=== PATIENT | male | born 1970 | race Caucasian/White ===

== ENCOUNTER 2020-02-28 20:46 | Observation (INO) | payer MEDICAID, OTHER ==
[2020-02-28] MEDS ORDERED: Sodium Chloride 0.9% 1000 ML 1,000 ML ONE ×2 (21:06→23:51)
--- NOTE | 2020-02-28 21:06 | ERPHSYRPT ---
- History of Present Illness Time Seen by Provider: 02/28/20 20:50 Source: patient Exam Limitations: no limitations Physician History: Patient is a 49-year-old male presents to our ED with complaints of myalgias. Symptoms started approximately 7 days ago. Patient states he has been working for 2 weeks straight. Patient feels his body is just sore from working. María ent states that he has a history of diabetes. However he has not treated. He does not see a family physician. He has been experiencing polyuria and polydipsia. Symptoms are progressive. Symptoms are moderate in intensity. No specific worsening or improving factors. Patient also points out that his right index finger is swollen red and tender. Patient believes that he may had a finger infection. No trauma. No associated fevers. No headache. No photophobia. No nuchal rigidity. Patient voices no other complaints concerns at this time. Timing/Duration: week(s) (Week) Severity: moderate Modifying Factors: Improves With: nothing Associated Symptoms: other (Generalized myalgias), No nausea, No vomiting, No abdominal pain, No heartburn, No diaphoresis, No cough, No chills, No chest p ain, No fever, No headaches, No loss of appetite, No malaise, No syncope Allergies/Adverse Reactions: No Known Drug Allergies Allergy (Unverified 02/28/20 20:55) Home Medications: No Reportable Medications [No Reported Medications] 02/28/20 [History] - Review of Systems Constitutional: No Symptoms, No Fever, No Chills Eyes: No Symptoms Ears, Nose, & Throat: No Symptoms Respiratory: No Symptoms, No Cough, No Dyspnea Cardiac: No Symptoms, No Chest Pain, No Edema, No Syncope Abdominal/Gastrointestinal: No Symptoms, No Abdominal Pain, No Nausea, No Vomiting, No Diarrhea Genitourinary Symptoms: No Symptoms, No Dysuria Musculoskeletal: No Symptoms, No Back Pain, No Neck Pain Skin: No Symptoms, No Rash Neurological: No Symptoms, No Dizziness, No Focal Weakness, No Sensory Changes Psychological: No Symptoms Endocrine: No Symptoms Hematologic/Lymphatic: No Symptoms Immunological/Allergic: No Symptoms All Other Systems: Reviewed and Negative - Nursing Vital Signs Nursing Vital Signs: Initial Vital Signs Temperature 98.1 F 02/28/20 20:46 Pulse Rate 109 H 02/28/20 20:46 Respiratory Rate 20 02/28/20 20:46 Blood Pressure 126/95 02/28/20 20:46 O2 Sat by Pulse Oximetry 95 02/28/20 20:46 Pain Scale Pain Intensity [] 8 Pain Intensity 6 - Physical Exam General Appearance: no apparent distress, alert Eye Exam: PERRL/EOMI, eyes nml inspection Ears, Nose, Throat Exam: normal ENT inspection, TMs normal, pharynx normal, moist mucous membranes Neck Exam: normal inspection, non-tender, supple, full range of motion Respiratory Exam: normal breath sounds, lungs clear, No respiratory distress Cardiovascular Exam: regular rate/rhythm, normal heart sounds, normal peripheral pulses Gastrointestinal/Abdomen Exam: soft, normal bowel sounds, No tenderness, No mass Back Exam: normal inspection, normal range of motion, No CVA tenderness, No vertebral tenderness Extremity Exam: normal inspection, normal range of motion, pelvis stable, other (Right index finger is warm tender and swollen. Patient believes he has a splinter underneath his fingernail.) Neurologic Exam: alert, oriented x 3, cooperative, normal mood/affect, nml cerebellar function, nml station & gait, sensation nml, No motor deficits Skin Exam: normal color, warm, dry, No rash Lymphatic Exam: No adenopathy SpO2 Interpretation: normal SpO2: 97 O2 Delivery: Room Air - Course Nursing assessment & vital signs reviewed: Yes EKG Interpreted by Me: RATE (105), Sinus Tach, NORMAL AXIS, NORMAL INTERVALS - Radiology Exams Chest X-ray Interpretation: Interpreted by me (Normal chest x-ray. No pneumothorax. No infiltrate. No consolidation. Normal bony thorax. Normal cardiac silhouette. Normal chest x-ray.) Hand X-ray Interpretation: Interpreted by me (No fracture or dislocation. No foreign body no evidence of osteomyelitis) Ordered Tests: Active Orders 24 hr Category Date Time Status Biomaterials Engineer STAT Care 02/28/20 21:00 Active EKG-ER Only STAT Care 02/28/20 20:59 Active IV Insertion STAT Care 02/28/20 20:59 Active IV Insertion-2nd Peripheral STAT Care 02/28/20 21:23 Active Pulse Oximetry (ED) STAT Care 02/28/20 20:59 Active CHEST 1 VIEW (PORTABLE) Stat Exams 02/28/20 20:59 Taken HAND (MINIMUM 3 VIEWS) Stat Exams 02/28/20 22:40 Ordered BLOOD CULTURE Stat Lab 02/28/20 21:20 Received CBC W DIFF Stat Lab 02/28/20 21:00 Completed CMP Stat Lab 02/28/20 21:00 Completed CULTURE,URINE Stat Lab 02/28/20 21:00 Received Lactic Acid Stat Lab 02/28/20 23:48 Ordered MAGNESIUM Stat Lab 02/28/20 21:00 Completed Manual Differential NC Stat Lab 02/28/20 21:00 Completed POCT GLUCOSE Stat Lab 02/28/20 21:05 Received TROPONIN Q3H Lab 02/28/20 21:00 Completed TROPONIN Q3H Lab 02/29/20 00:00 Ordered TROPONIN Q3H Lab 02/29/20 03:00 Ordered TROPONIN Q3H Lab 02/29/20 06:00 Ordered TROPONIN Q3H Lab 02/29/20 09:00 Ordered TSH [TSH, 3RD Generation] Stat Lab 02/28/20 21:00 Completed UA W/RFX UR CULTURE Stat Lab 02/28/20 21:00 Completed VENOUS BLOOD GAS Urgent Lab 02/28/20 21:56 Completed Transfer Order Routine Transfer 02/28/20 Ordered Medication Summary Generic Name Dose Route Start Last Admin Trade Name Freq PRN Reason Stop Dose Admin Sodium Chloride 1,000 mls @ 100 mls/hr 02/28/20 21:15 02/28/20 22:09 Sodium Chloride 0.9% 1000 Ml IV 03/29/20 21:14 Infused .Q10H NAN Infusion Insulin Human Regular 100 unit 100 mls @ 8.382 mls/hr 02/28/20 22:28 02/28/20 22:39 / Sodium Chloride IV 03/29/20 22:27 0.1 unit/kg/hr .[id number] PRN 8.382 mls/hr DKA/HYPERGLYCEMIA Administration Protocol 0.1 UNIT/KG/HR Vancomycin HCl 1 gm in 200 mls @ 125 mls/hr 02/28/20 22:41 02/28/20 23:22 Vancomycin 1 Gram/200 Ml Bag IV 02/29/20 00:16 125 mls/hr STAT ONE 125 mls/hr Administration Discontinued Medications Generic Name Dose Route Start Last Admin Trade Name Freq PRN Reason Stop Dose Admin Fluconazole 150 mg 02/28/20 23:19 Diflucan PO 02/28/20 23:20 ONCE STA Sodium Chloride Confirm 02/28/20 22:34 Sodium Chloride 0.9% 100 Ml Ivpb Administered 02/28/20 22:35 Dose 100 mls @ ud IV .STK-MED ONE Piperacillin Sod/Tazobactam 100 mls @ 200 mls/hr 02/28/20 22:38 02/28/20 22:4 8 Sod 3.375 gm/ Sodium Chloride IV 02/28/20 23:07 200 mls/hr STAT ONE Administration Sodium Chloride Confirm 02/28/20 22:45 Sodium Chloride 100ml Mini-Bag Plus Administered 02/28/20 22:46 Dose 100 mls @ ud IV .STK-MED ONE Vancomycin HCl Confirm 02/28/20 23:21 Vancomycin 1 Gram/200 Ml Bag Administered 02/28/20 23:22 Dose 1 gm in 200 mls @ ud IV .STK-MED ONE Insulin Human Regular Confirm 02/28/20 22:34 Humulin R Administered 02/28/20 22:35 Dose 100 unit .ROUTE .STK-MED ONE Morphine Sulfate 2 mg 02/28/20 22:30 02/28/20 22:39 Morphine Sulfate 2 Mg Inj IV 02/28/20 22:31 2 mg STAT ONE Administration Morphine Sulfate Confirm 02/28/20 22:34 Morphine Sulfate 2 Mg Inj Administered 02/28/20 22:35 Dose 2 mg .ROUTE .STK-MED ONE Piperacillin Sod/Tazobactam Sod Confirm 02/28/20 22:44 Zosyn 3.375 Gm Vial Administered 02/28/20 22:45 Dose 3.375 gm IV .STK-MED ONE Lab/Rad Data: Laboratory Result Diagrams 02/28/20 21:00 02/28/20 21:00 Laboratory Results 02/28/20 02/28/20 02/28/20 Range/Units 21:56 21:30 21:00 WBC (4.0-10.5) K/mm3 RBC (4.1-5.6) M/mm3 Hgb (12.5-18.0) gm/dl Hct (42-50) % MCV (78-100) fl MCH (26-32) pg MCHC (32-36) g/dl RDW (11.5-14.0) % Plt Count (150-450) K/mm3 MPV (7.5-11.0) fl Segmented Neutrophils (36.-66.) % Lymphocytes (Manual) (24-44) % Monocytes (Manual) (0.0-12.0) % Platelet Estimate (NORMAL) RBC Morphology pO2/FiO2 Ratio 21.0 % VBG pH 7.53 H (7.32-7.42) VBG pCO2 at Pat Temp 34 L (42-55) mm/Hg VBG pO2 at Pat Temp 66 H (25-40) mm/Hg VBG HCO3 28.4 H (22-28) meq/L VBG O2 Sat (Anamaria) 95.5 (95-100) VBG Base Excess 5.8 H (-2.0-2.0) VBG Hemoglobin 13.0 VBG Carboxyhemoglobin 3.1 (0.0-6.9) % T HGB POC Potassium 5.1 (3.5-5.1) Sodium (137-145) mmol/L Potassium (3.5-5.1) mmol/L Chloride (98-107) mmol/L Carbon Dioxide (22-30) mmol/L Anion Gap (5-15) MEQ/L BUN (9-20) mg/dL Creatinine (0.66-1.25) mg/dL Estimated GFR ML/MIN Glucose (74-106) mg/dL Calcium (8.4-10.2) mg/dL Magnesium (1.6-2.3) mg/dL Total Bilirubin (0.2-1.3) mg/dL AST (17-59) U/L ALT (0-50) U/L Alkaline Phosphatase (38-126) U/L Troponin I (0.000-0.034) ng/mL Serum Total Protein (6.3-8.2) g/dL Albumin (3.5-5.0) g/dL TSH 3rd Generation (0.47-4.68) mIU/L Urine Color YELLOW (YELLOW) Urine Appearance CLOUDY (CLEAR) Urine pH 6.0 (5-6) Ur Specific [place] 1.014 (1.005-1.025) Urine Protein NEGATIVE (Negative) Urine Ketones NEGATIVE (NEGATIVE) Urine Blood MODERATE (0-5) Stefan/ul Urine Nitrite NEGATIVE (NEGATIVE) Urine Bilirubin NEGATIVE (NEGATIVE) Urine Urobilinogen NEGATIVE (0-1) mg/dL Ur Leukocyte Esterase LARGE (NEGATIVE) Urine WBC (Auto) >100 (0-5) /HPF Urine RBC (Auto) 6-10 (0-2) /HPF U Epithel Cells (Auto) NONE (FEW) /HPF Urine Bacteria (Auto) RARE (NEGATIVE) /HPF Unidentified Crystals 2-5 (NEGATIVE) /HPF Urine Yeast (Budding) Rare (NEGATIVE) /HPF Urine Culture Reflexed YES (NO) Urine Glucose >=500 (NEGATIVE) mg/dL Influenza Type A Ag NEGATIVE (NEGATIVE) Influenza Type B Ag NEGATIVE (NEGATIVE) RSV (PCR) NEGATIVE (Negative) 02/28/20 02/28/20 02/28/20 Range/Units 21:00 21:00 21:00 WBC (4.0-10.5) K/mm3 RBC (4.1-5.6) M/mm3 Hgb (12.5-18.0) gm/dl Hct (42-50) % MCV (78-100) fl MCH (26-32) pg MCHC (32-36) g/dl RDW (11.5-14.0) % Plt Count (150-450) K/mm3 MPV (7.5-11.0) fl Segmented Neutrophils (36.-66.) % Lymphocytes (Manual) (24-44) % Monocytes (Manual) (0.0-12.0) % Platelet Estimate (NORMAL) RBC Morphology pO2/FiO2 Ratio % VBG pH (7.32-7.42) VBG pCO2 at Pat Temp (42-55) mm/Hg VBG pO2 at Pat Temp (25-40) mm/Hg VBG HCO3 (22-28) meq/L VBG O2 Sat (Anamaria) (95-100) VBG Base Excess (-2.0-2.0) VBG Hemoglobin VBG Carboxyhemoglobin (0.0-6.9) % T HGB POC Potassium (3.5-5.1) Sodium 124 L (137-145) mmol/L Potassium 5.1 (3.5-5.1) mmol/L Chloride 86 L (98-107) mmol/L Carbon Dioxide 27 (22-30) mmol/L Anion Gap 15.6 H (5-15) MEQ/L BUN 35 H (9-20) mg/dL Creatinine 1.71 H (0.66-1.25) mg/dL Estimated GFR 45.6 ML/MIN Glucose 800 H* (74-106) mg/dL Calcium 9.0 (8.4-10.2) mg/dL Magnesium 2.3 (1.6-2.3) mg/dL Total Bilirubin 0.70 (0.2-1.3) mg/dL AST 16 L (17-59) U/L ALT 13 (0-50) U/L Alkaline Phosphatase 196 H (38-126) U/L Troponin I < 0.012 (0.000-0.034) ng/mL Serum Total Protein 7.9 (6.3-8.2) g/dL Albumin 3.8 (3.5-5.0) g/dL TSH 3rd Generation 1.300 (0.47-4.68) mIU/L Urine Color (YELLOW) Urine Appearance (CLEAR) Urine pH (5-6) Ur Specific [place] (1.005-1.025) Urine Protein (Negative) Urine Ketones (NEGATIVE) Urine Blood (0-5) Stefan/ul Urine Nitrite (NEGATIVE) Urine Bilirubin (NEGATIVE) Urine Urobilinogen (0-1) mg/dL Ur Leukocyte Esterase (NEGATIVE) Urine WBC (Auto) (0-5) /HPF Urine RBC (Auto) (0-2) /HPF U Epithel Cells (Auto) (FEW) /HPF Urine Bacteria (Auto) (NEGATIVE) /HPF Unidentified Crystals (NEGATIVE) /HPF Urine Yeast (Budding) (NEGATIVE) /HPF Urine Culture Reflexed (NO) Urine Glucose (NEGATIVE) mg/dL Influenza Type A Ag (NEGATIVE) Influenza Type B Ag (NEGATIVE) RSV (PCR) (Negative) 02/28/20 Range/Units 21:00 WBC 21.7 H (4.0-10.5) K/mm3 RBC 4.39 (4.1-5.6) M/mm3 Hgb 12.6 (12.5-18.0) gm/dl Hct 36.2 L (42-50) % MCV 82.5 (78-100) fl MCH 28.7 (26-32) pg MCHC 34.8 (32-36) g/dl RDW 11.6 (11.5-14.0) % Plt Count 408 (150-450) K/mm3 MPV 9.1 (7.5-11.0) fl Segmented Neutrophils 94 H (36.-66.) % Lymphocytes (Manual) 4 L (24-44) % Monocytes (Manual) 2 (0.0-12.0) % Platelet Estimate NORMAL (NORMAL) RBC Morphology NORMAL pO2/FiO2 Ratio % VBG pH (7.32-7.42) VBG pCO2 at Pat Temp (42-55) mm/Hg VBG pO2 at Pat Temp (25-40) mm/Hg VBG HCO3 (22-28) meq/L VBG O2 Sat (Anamaria) (95-100) VBG Base Excess (-2.0-2.0) VBG Hemoglobin VBG Carboxyhemoglobin (0.0-6.9) % T HGB POC Potassium (3.5-5.1) Sodium (137-145) mmol/L Potassium (3.5-5.1) mmol/L Chloride (98-107) mmol/L Carbon Dioxide (22-30) mmol/L Anion Gap (5-15) MEQ/L BUN (9-20) mg/dL Creatinine (0.66-1.25) mg/dL Estimated GFR ML/MIN Glucose (74-106) mg/dL Calcium (8.4-10.2) mg/dL Magnesium (1.6-2.3) mg/dL Total Bilirubin (0.2-1.3) mg/dL AST (17-59) U/L ALT (0-50) U/L Alkaline Phosphatase (38-126) U/L Troponin I (0.000-0.034) ng/mL Serum Total Protein (6.3-8.2) g/dL Albumin (3.5-5.0) g/dL TSH 3rd Generation (0.47-4.68) mIU/L Urine Color (YELLOW) Urine Appearance (CLEAR) Urine pH (5-6) Ur Specific [place] (1.005-1.025) Urine Protein (Negative) Urine Ketones (NEGATIVE) Urine Blood (0-5) Stefan/ul Urine Nitrite (NEGATIVE) Urine Bilirubin (NEGATIVE) Urine Urobilinogen (0-1) mg/dL Ur Leukocyte Esterase (NEGATIVE) Urine WBC (Auto) (0-5) /HPF Urine RBC (Auto) (0-2) /HPF U Epithel Cells (Auto) (FEW) /HPF Urine Bacteria (Auto) (NEGATIVE) /HPF Unidentified Crystals (NEGATIVE) /HPF Urine Yeast (Budding) (NEGATIVE) /HPF Urine Culture Reflexed (NO) Urine Glucose (NEGATIVE) mg/dL Influenza Type A Ag (NEGATIVE) Influenza Type B Ag (NEGATIVE) RSV (PCR) (Negative) - Progress Progress: improved Progress Note: 02/29/20 00:01 Patient reassessed. He feels better. Work-up suggestive of HHS, hyperosmotic hyperglycemic state. Corrected sodium is 140 using 2.4 to correct sodium. X- ray hand does not show osteomyelitis. No foreign bodies. Patient does have a urinary tract infection. This may be contributing to the HHS state. Acute renal injury likely from profound dehydration. IV fluids initiated. Blood cultures obtained. Broad-spectrum antibiotics administered. Insulin drip a dministered at 0.1 units/kg/h. case discussed with Dr. Pryor who accepts admission to observation. Plan of care discussed with patient. He agrees to admission to [facility] for further evaluation and treatment. Will see patient in: hospital (observation) Counseled pt/family regarding: lab results, diagnosis, rad results - Departure Departure Disposition: Observation Clinical Impression: Hyperosmolar hyperglycemic state (HHS), Hematuria, UTI (urinary tract infection), Finger infection, Yeast detected, Myalgia, Acute renal injury Condition: Stable Critical Care Time: No Referrals: DOCTOR,NO FAMILY [Primary Care Provider] -
[2020-02-28] MEDS ORDERED: Sodium Chloride 0.9% 1000 ML 1,000 ML IV SCH (21:15)
[2020-02-28 21:33] LABS: Hematocrit 36.2 % (42-50); Hemoglobin 12.6 gm/dl (12.5-18.0); Mean Cell Volume 82.5 fl (78-100); Mean Corpuscular Hemoglobin 28.7 pg (26-32); Mean Corpuscular Hgb Concent. 34.8 g/dl (32-36); Mean Platelet Volume 9.1 fl (7.5-11.0); Platelet Count 408 K/mm3 (150-450); Red Blood Count 4.39 M/mm3 (4.1-5.6); Red Cell Distribution Width 11.6 % (11.5-14.0); White Blood Count 21.7 K/mm3 (4.0-10.5)
[2020-02-28 21:46] LABS: ALBUMIN 3.8 g/dL (3.5-5.0); ANION GAP 15.6 MEQ/L (5-15); BILIRUBIN,TOTAL 0.7 mg/dL (0.2-1.3); Creatinine 1 1.71 mg/dL (0.66-1.25); EST GLOMERULAR FILTRATION RATE 45.6 ML/MIN; MAGNESIUM 2.3 mg/dL (1.6-2.3); Potassium 5.1 mmol/L (3.5-5.1); Total Protein 7.9 g/dL (6.3-8.2)
[2020-02-28 21:54] LABS: Appearance CLOUDY (CLEAR); Bacteria RARE /HPF (NEGATIVE); Bilirubin NEGATIVE (NEGATIVE); Blood MODERATE Ery/ul (0-5); Glucose >=500 mg/dL (NEGATIVE); Ketones NEGATIVE (NEGATIVE); Leukocyte Esterase LARGE (NEGATIVE); Nitrite NEGATIVE (NEGATIVE); Protein,Urine Dip NEGATIVE (Negative); Specific Gravity 1.014 (1.005-1.025); Urobilinogen NEGATIVE mg/dL (0-1); WBC >100 /HPF (0-5)
[2020-02-28 22:00] LABS: Budding Yeast Rare /HPF (NEGATIVE)
[2020-02-28 22:04] LABS: VBG BASE EXCESS 5.8 (-2.0-2.0); VBG CARBOXYHEMOGLOBIN 3.1 % T HGB (0.0-6.9); VBG HCO3- 28.4 meq/L (22-28); VBG O2 SATURATION 95.5 (95-100); VBG POTASSIUM 5.1 (3.5-5.1); VBG pH 7.53 (7.32-7.42)
[2020-02-28 22:17] LABS: INFLUENZA A NEGATIVE (NEGATIVE); INFLUENZA B NEGATIVE (NEGATIVE); RESPIRATORY SYNCTIAL VIRUS NEGATIVE (Negative)
[2020-02-28] MEDS ORDERED: HUMULIN R 100 UNIT in Sodium Chloride 0.9% 100 ML IVPB 100 ML IV PRN (22:28)
[2020-02-28] MEDS ORDERED: MORPHINE SULFATE 2 MG INJ IV ONE (22:30)
[2020-02-28] MEDS ORDERED: Sodium Chloride 0.9% 100 ML IVPB 100 ML IV ONE (22:34)
[2020-02-28] MEDS ORDERED: HUMULIN R ONE (22:34)
[2020-02-28] MEDS ORDERED: MORPHINE SULFATE 2 MG INJ ONE (22:34)
[2020-02-28] MEDS ORDERED: Zosyn 3.375 GM Vial 3.375 GM in Sodium Chloride 100ML MINI-BAG PLUS 100 ML IV ONE (22:38)
[2020-02-28] MEDS ORDERED: VANCOMYCIN 1 GRAM/200 ML BAG 1 GM/200 ML PIGGYBACK IV ONE ×2 (22:41→23:21)
[2020-02-28] MEDS ORDERED: Zosyn 3.375 GM Vial IV ONE (22:44)
[2020-02-28] MEDS ORDERED: Sodium Chloride 100ML MINI-BAG PLUS 100 ML IV ONE (22:45)
[2020-02-28 23:17] LABS: Lymphocytes 4 % (24-44); Monocyte 2 % (0.0-12.0); Neutrophils 94 % (36.-66.); Platelet Estimate NORMAL (NORMAL); Total Cells Counted 100
[2020-02-28] MEDS ORDERED: DIFLUCAN PO STA (23:19)
[2020-02-29] MEDS ORDERED: Diflucan 100 MG ONE (00:02)
[2020-02-29] MEDS ORDERED: Sodium Chloride 0.9% 1000 ML 1,000 ML IV STA (00:07)
[2020-02-29] MEDS ORDERED: Sodium Chloride 0.9% 1000 ML 1,000 ML IV SCH ×2 (01:05→09:00)
[2020-02-29] MEDS ORDERED: MORPHINE SULFATE 2 MG INJ IV PRN (01:05)
[2020-02-29 03:22] LABS: Hematocrit 32.8 % (42-50); Hemoglobin 11.4 gm/dl (12.5-18.0); Mean Cell Volume 82.8 fl (78-100); Mean Corpuscular Hemoglobin 28.8 pg (26-32); Mean Corpuscular Hgb Concent. 34.8 g/dl (32-36); Mean Platelet Volume 8.5 fl (7.5-11.0); Platelet Count 369 K/mm3 (150-450); Red Blood Count 3.96 M/mm3 (4.1-5.6); Red Cell Distribution Width 11.5 % (11.5-14.0); White Blood Count 20.5 K/mm3 (4.0-10.5)
[2020-02-29] MEDS ORDERED: Lantus Insulin ONE (03:30)
[2020-02-29] MEDS ORDERED: Dextrose 5% -0.45 NaCl 1000 ML 1,000 ML IV ONE (03:31)
[2020-02-29] MEDS ORDERED: Lantus Insulin SQ SCH (03:34)
[2020-02-29 03:40] LABS: Lactic Acid 1.2 (0.4-2.0); VBG BASE EXCESS 6.2 (-2.0-2.0); VBG CARBOXYHEMOGLOBIN 2.2 % T HGB (0.0-6.9); VBG HCO3- 29.5 meq/L (22-28); VBG HEMOGLOBIN 11.7; VBG O2 SATURATION 94.6 (95-100); VBG pH 7.51 (7.32-7.42)
[2020-02-29] MEDS: Dextrose 5% -0.45 NaCl 1000 ML 1,000 ML IV SCH ×2 (03:46→07:34)
[2020-02-29 03:58] LABS: ALBUMIN 3.6 g/dL (3.5-5.0); ALKALINE PHOSPHATASE 155 U/L (38-126); ANION GAP 10.3 MEQ/L (5-15); BLOOD UREA NITROGEN 32 mg/dL (9-20); CHLORIDE 99 mmol/L (98-107); Carbon Dioxide 28 mmol/L (22-30); Creatinine 1 1.61 mg/dL (0.66-1.25); EST GLOMERULAR FILTRATION RATE 48.9 ML/MIN; Glucose 183 mg/dL (74-106); SGOT/AST 13 U/L (17-59); SGPT/ALT 10 U/L (0-50); SODIUM 134 mmol/L (137-145); Total Protein 7.6 g/dL (6.3-8.2)
[2020-02-29 04:01] LABS: TROPONIN < 0.012 ng/mL (0.000-0.034)
[2020-02-29 04:13] LABS: Lymphocytes 5 % (24-44); Monocyte 13 % (0.0-12.0); Neutrophils 82 % (36.-66.); Platelet Estimate NORMAL (NORMAL); Total Cells Counted 100
[2020-02-29 04:14] LABS: Toxic Granulation 1+
[2020-02-29 04:15] VITALS: BP 149/81
[2020-02-29] MEDS ORDERED: PHARMACY DOSING REQUIRED: VANCOMYCIN IV STA (07:15)
[2020-02-29] MEDS ORDERED: TROUGH DRUG LEVELS IJ ONE (07:45)
[2020-02-29] MEDS: Zosyn 3.375 GM Vial 3.375 GM in Sodium Chloride 100ML MINI-BAG PLUS 100 ML IV SCH ×3 (08:15→17:37)
[2020-02-29] MEDS ORDERED: MOTRIN 600 MG PO PRN (08:53)
[2020-02-29] MEDS: HUMALOG SQ PRN ×5 (09:04→17:38)
--- NOTE | 2020-02-29 09:05 | XRAY ---
Indication: Weakness. Pneumonia. Comparison: None Portable chest demonstrates normal heart, lungs, and bony thorax.
--- NOTE | 2020-02-29 09:06 | XRAY ---
Indication: Osteomyelitis index finger. Comparison: None 3 view right hand obtained. No bony, articular, or soft tissue abnormalities.
[2020-02-29] MEDS ORDERED: FLUZONE QUAD 2020-2021 SYRINGE IM ONE (10:00)
[2020-02-29] MEDS ORDERED: VANCOMYCIN 1.5 GRAM/300 ML BAG 1.5 GM/300 ML PIGGYBACK IV SCH (10:00)
[2020-02-29 12:30] VITALS: O2SAT 96
--- NOTE | 2020-02-29 13:16 | XRAY ---
Indication: Abdomen tenderness. Multiple contiguous axial images obtained through the abdomen and pelvis without contrast as ordered. Comparison: None Lung bases demonstrates bibasilar dependent atelectasis. No infiltrate or effusion. Heart is not enlarged. Noncontrasted stomach and bowel loops appear nonobstructed. Normal appendix. There is moderate/significant scattered colonic fecal debris throughout including rectum. No free fluid/air. Massive bilateral hydronephrosis with mild bilateral perinephric stranding. No distal ureteral calculus or perinephric fluid. Also massive bilateral hydroureter, left greater than right with left ureter are distended up to 3.5 cm. Urinary bladder is also significantly distended concerning for outlet obstruction versus neurogenic bladder. Urinary bladder also demonstrates circumferential wall thickening possibly cystitis. Liver is enlarged measuring 22 cm. Spleen is also enlarged measuring 14 cm. Remaining liver, gallbladder, pancreas, spleen, adrenal glands, and aorta are unremarkable for noncontrast exam. Osseous structures intact. No ventral or inguinal hernias. Impression: 1. Moderate/significant diffuse fecal stasis. 2. Massive bilateral hydronephrosis and massive hydroureter without calculus. Abnormally distended urinary bladder concerning for outlet obstruction versus neurogenic bladder and could reasonably explain hydronephrosis/hydroureter. Also circumferential urinary bladder wall thickening possibly superimposed cystitis. 3. Incidental hepatosplenomegaly.
[2020-02-29 17:01] VITALS: PULSE 95
--- NOTE | 2020-02-29 17:47 | PCM.SSS ---
History of Present Illness - Chief Complaint Chief Complaint: [facility] History of Present Illness: is a 49 year old male with diabetes who does not go to the doctor. 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 He presented to ER with myalgias worsening x 1 week. He has Hx renal stones and has had increased urinary frequency. ER work up showed glucose 800 , WBC=20,000, UA 100 WBCs, A1C =11.7%. Patient was admitted to [facility]BS ICU on insulin drip. Sugar has come down gradually ,now = 169. He is on sliding scale and recieved Lantus 43 units and insulin drip was discontinued early this morning. Urine and blood cultures pending, was started on Zosyn and Vancomycin. - Review of Systems Constitutional: Fatigue, Weakness Eyes: No Symptoms Ears, Nose, & Throat: Other (infected teeth,no sore throat ) Respiratory: No Symptoms Cardiac: No Symptoms Abdominal/Gastrointestinal: Abdominal Pain Genitourinary Symptoms: Frequency Musculoskeletal: Myalgias, Other (right forefinger sore and bled,NKI) Skin: No Symptoms Neurological: No Symptoms Psychological: No Symptoms Endocrine: Polyuria, Polydipsia Hematologic/Lymphatic: No Symptoms Immunological/Allergic: No Symptoms Medications & Allergies Home Medications: Home Medication List No Reportable Medications [No Reported Medications] 02/28/20 [History Confirmed 02/28/20] Allergies/Adverse Reactions: Allergies Allergy/AdvReac Type Severity Reaction Status Date / Time No Known Drug Allergies Allergy Unverified 02/28/20 20:55 - Past Medical History Past Medical History: Yes Neurological History: No Pertinent History ENT History: No Pertinent History Cardiac History: No Pertinent History Respiratory History: No Pertinent History Endocrine Medical History: Diabetes Type I Musculoskelatal History: No Pertinent History GI Medical History: No Pertinent History History: No Pertinent History, Other (Hx kidney stones) Pyscho-Social History: No Pertinent History Male Reproductive Disorders: No Pertinent History - Past Surgical History Past Surgical History: Yes Other Surgical History: Wart removal - Social History Smoking Status: Never smoker Exposure to second hand smoke: Yes Alcohol: None Drug Use: none - Physical Exam Vital Signs: Vital Signs - 24 hr Temp Pulse Resp BP Pulse Ox 02/29/20 16:00 98.2 F 95 H 16 149/81 96 02/29/20 12:00 98.6 F 103 H 18 149/81 96 02/29/20 08:00 99.1 F 102 H 14 149/81 93 L 02/29/20 06:49 95 02/29/20 04:00 98.8 F 114 H 16 149/81 97 02/29/20 01:42 98.1 F 124 H 16 167/99 94 L 02/29/20 01:05 97 02/29/20 00:31 124 H 21 146/94 94 L 02/29/20 00:04 97 02/29/20 00:04 110 H 146/94 96 02/28/20 23:04 116 H 17 137/88 93 L 02/28/20 22:00 112 H 16 132/96 93 L 02/28/20 21:51 110 H 132/79 94 L 02/28/20 21:05 97 02/28/20 20:46 98.1 F 109 H 20 126/95 95 General Appearance: no apparent distress Neurologic Exam: alert, oriented x 3, cooperative, normal mood/affect Eye Exam: eyes nml inspection Ears, Nose, Throat Exam: other (poor dentia) Neck Exam: normal inspection, non-tender, supple Respiratory Exam: normal breath sounds, lungs clear Cardiovascular Exam: regular rate/rhythm, other (no edema) Gastrointestinal/Abdomen Exam: soft, tenderness (left flank and CVA), distention Back Exam: CVA tenderness, muscle spasm Extremity Exam: normal inspection, other (right forefinger nail with dried heme) Skin Exam: normal color, warm, dry Results - Labs Lab/Micro Results: Lab Results-Last 24 Hours 02/28/20 02/28/20 02/28/20 Range/Units 21:00 21:00 21:00 WBC 21.7 H (4.0-10.5) K/mm3 RBC 4.39 (4.1-5.6) M/mm3 Hgb 12.6 (12.5-18.0) gm/dl Hct 36.2 L (42-50) % MCV 82.5 (78-100) fl MCH 28.7 (26-32) pg MCHC 34.8 (32-36) g/dl RDW 11.6 (11.5-14.0) % Plt Count 408 (150-450) K/mm3 MPV 9.1 (7.5-11.0) fl Segmented Neutrophils 94 H (36.-66.) % Lymphocytes (Manual) 4 L (24-44) % Monocytes (Manual) 2 (0.0-12.0) % Toxic Granulation Platelet Estimate NORMAL (NORMAL) RBC Morphology NORMAL pO2/FiO2 Ratio % VBG pH (7.32-7.42) VBG pCO2 at Pat Temp (42-55) mm/Hg VBG pO2 at Pat Temp (25-40) mm/Hg VBG HCO3 (22-28) meq/L VBG O2 Sat (Anamaria) (95-100) VBG Base Excess (-2.0-2.0) VBG Hemoglobin VBG Carboxyhemoglobin (0.0-6.9) % T HGB POC Potassium (3.5-5.1) Sodium 124 L (137-145) mmol/L Potassium 5.1 (3.5-5.1) mmol/L Chloride 86 L (98-107) mmol/L Carbon Dioxide 27 (22-30) mmol/L Anion Gap 15.6 H (5-15) MEQ/L BUN 35 H (9-20) mg/dL Creatinine 1.71 H (0.66-1.25) mg/dL Estimated GFR 45.6 ML/MIN Glucose 800 H* (74-106) mg/dL POC Glucometer (74 to 106) mg/dL Hemoglobin A1c (4.5-6.0) % Lactic Acid (0.4-2.0) Calcium 9.0 (8.4-10.2) mg/dL Magnesium 2.3 (1.6-2.3) mg/dL Total Bilirubin 0.70 (0.2-1.3) mg/dL AST 16 L (17-59) U/L ALT 13 (0-50) U/L Alkaline Phosphatase 196 H (38-126) U/L Troponin I < 0.012 (0.000-0.034) ng/mL Serum Total Protein 7.9 (6.3-8.2) g/dL Albumin 3.8 (3.5-5.0) g/dL TSH 3rd Generation (0.47-4.68) mIU/L Urine Color (YELLOW) Urine Appearance (CLEAR) Urine pH (5-6) Ur Specific [place] (1.005-1.025) Urine Protein (Negative) Urine Ketones (NEGATIVE) Urine Blood (0-5) Stefan/ul Urine Nitrite (NEGATIVE) Urine Bilirubin (NEGATIVE) Urine Urobilinogen (0-1) mg/dL Ur Leukocyte Esterase (NEGATIVE) Urine WBC (Auto) (0-5) /HPF Urine RBC (Auto) (0-2) /HPF U Epithel Cells (Auto) (FEW) /HPF Urine Bacteria (Auto) (NEGATIVE) /HPF Unidentified Crystals (NEGATIVE) /HPF Urine Yeast (Budding) (NEGATIVE) /HPF Urine Culture Reflexed (NO) Urine Glucose (NEGATIVE) mg/dL Influenza Type A Ag (NEGATIVE) Influenza Type B Ag (NEGATIVE) RSV (PCR) (Negative) 02/28/20 02/28/20 02/28/20 Range/Units 21:00 21:00 21:30 WBC (4.0-10.5) K/mm3 RBC (4.1-5.6) M/mm3 Hgb (12.5-18.0) gm/dl Hct (42-50) % MCV (78-100) fl MCH (26-32) pg MCHC (32-36) g/dl RDW (11.5-14.0) % Plt Count (150-450) K/mm3 MPV (7.5-11.0) fl Segmented Neutrophils (36.-66.) % Lymphocytes (Manual) (24-44) % Monocytes (Manual) (0.0-12.0) % Toxic Granulation Platelet Estimate (NORMAL) RBC Morphology pO2/FiO2 Ratio % VBG pH (7.32-7.42) VBG pCO2 at Pat Temp (42-55) mm/Hg VBG pO2 at Pat Temp (25-40) mm/Hg VBG HCO3 (22-28) meq/L VBG O2 Sat (Anamaria) (95-100) VBG Base Excess (-2.0-2.0) VBG Hemoglobin VBG Carboxyhemoglobin (0.0-6.9) % T HGB POC Potassium (3.5-5.1) Sodium (137-145) mmol/L Potassium (3.5-5.1) mmol/L Chloride (98-107) mmol/L Carbon Dioxide (22-30) mmol/L Anion Gap (5-15) MEQ/L BUN (9-20) mg/dL Creatinine (0.66-1.25) mg/dL Estimated GFR ML/MIN Glucose (74-106) mg/dL POC Glucometer (74 to 106) mg/dL Hemoglobin A1c (4.5-6.0) % Lactic Acid (0.4-2.0) Calcium (8.4-10.2) mg/dL Magnesium (1.6-2.3) mg/dL Total Bilirubin (0.2-1.3) mg/dL AST (17-59) U/L ALT (0-50) U/L Alkaline Phosphatase (38-126) U/L Troponin I (0.000-0.034) ng/mL Serum Total Protein (6.3-8.2) g/dL Albumin (3.5-5.0) g/dL TSH 3rd Generation 1.300 (0.47-4.68) mIU/L Urine Color YELLOW (YELLOW) Urine Appearance CLOUDY (CLEAR) Urine pH 6.0 (5-6) Ur Specific [place] 1.014 (1.005-1.025) Urine Protein NEGATIVE (Negative) Urine Ketones NEGATIVE (NEGATIVE) Urine Blood MODERATE (0-5) Stefan/ul Urine Nitrite NEGATIVE (NEGATIVE) Urine Bilirubin NEGATIVE (NEGATIVE) Urine Urobilinogen NEGATIVE (0-1) mg/dL Ur Leukocyte Esterase LARGE (NEGATIVE) Urine WBC (Auto) >100 (0-5) /HPF Urine RBC (Auto) 6-10 (0-2) /HPF U Epithel Cells (Auto) NONE (FEW) /HPF Urine Bacteria (Auto) RARE (NEGATIVE) /HPF Unidentified Crystals 2-5 (NEGATIVE) /HPF Urine Yeast (Budding) Rare (NEGATIVE) /HPF Urine Culture Reflexed YES (NO) Urine Glucose >=500 (NEGATIVE) mg/dL Influenza Type A Ag NEGATIVE (NEGATIVE) Influenza Type B Ag NEGATIVE (NEGATIVE) RSV (PCR) NEGATIVE (Negative) 02/28/20 02/28/20 02/29/20 Range/Units 21:56 23:48 00:00 WBC (4.0-10.5) K/mm3 RBC (4.1-5.6) M/mm3 Hgb (12.5-18.0) gm/dl Hct (42-50) % MCV (78-100) fl MCH (26-32) pg MCHC (32-36) g/dl RDW (11.5-14.0) % Plt Count (150-450) K/mm3 MPV (7.5-11.0) fl Segmented Neutrophils (36.-66.) % Lymphocytes (Manual) (24-44) % Monocytes (Manual) (0.0-12.0) % Toxic Granulation Platelet Estimate (NORMAL) RBC Morphology pO2/FiO2 Ratio 21.0 % VBG pH 7.53 H (7.32-7.42) VBG pCO2 at Pat Temp 34 L (42-55) mm/Hg VBG pO2 at Pat Temp 66 H (25-40) mm/Hg VBG HCO3 28.4 H (22-28) meq/L VBG O2 Sat (Anamaria) 95.5 (95-100) VBG Base Excess 5.8 H (-2.0-2.0) VBG Hemoglobin 13.0 VBG Carboxyhemoglobin 3.1 (0.0-6.9) % T HGB POC Potassium 5.1 (3.5-5.1) Sodium (137-145) mmol/L Potassium (3.5-5.1) mmol/L Chloride (98-107) mmol/L Carbon Dioxide (22-30) mmol/L Anion Gap (5-15) MEQ/L BUN (9-20) mg/dL Creatinine (0.66-1.25) mg/dL Estimated GFR ML/MIN Glucose (74-106) mg/dL POC Glucometer (74 to 106) mg/dL Hemoglobin A1c (4.5-6.0) % Lactic Acid 2.5 H (0.4-2.0) Calcium (8.4-10.2) mg/dL Magnesium (1.6-2.3) mg/dL Total Bilirubin (0.2-1.3) mg/dL AST (17-59) U/L ALT (0-50) U/L Alkaline Phosphatase (38-126) U/L Troponin I < 0.012 (0.000-0.034) ng/mL Serum Total Protein (6.3-8.2) g/dL Albumin (3.5-5.0) g/dL TSH 3rd Generation (0.47-4.68) mIU/L Urine Color (YELLOW) Urine Appearance (CLEAR) Urine pH (5-6) Ur Specific [place] (1.005-1.025) Urine Protein (Negative) Urine Ketones (NEGATIVE) Urine Blood (0-5) Stefan/ul Urine Nitrite (NEGATIVE) Urine Bilirubin (NEGATIVE) Urine Urobilinogen (0-1) mg/dL Ur Leukocyte Esterase (NEGATIVE) Urine WBC (Auto) (0-5) /HPF Urine RBC (Auto) (0-2) /HPF U Epithel Cells (Auto) (FEW) /HPF Urine Bacteria (Auto) (NEGATIVE) /HPF Unidentified Crystals (NEGATIVE) /HPF Urine Yeast (Budding) (NEGATIVE) /HPF Urine Culture Reflexed (NO) Urine Glucose (NEGATIVE) mg/dL Influenza Type A Ag (NEGATIVE) Influenza Type B Ag (NEGATIVE) RSV (PCR) (Negative) 02/29/20 02/29/20 02/29/20 Range/Units 01:24 02:01 03:00 WBC 20.5 H (4.0-10.5) K/mm3 RBC 3.96 L (4.1-5.6) M/mm3 Hgb 11.4 L (12.5-18.0) gm/dl Hct 32.8 L (42-50) % MCV 82.8 (78-100) fl MCH 28.8 (26-32) pg MCHC 34.8 (32-36) g/dl RDW 11.5 (11.5-14.0) % Plt Count 369 (150-450) K/mm3 MPV 8.5 (7.5-11.0) fl Segmented Neutrophils 82 H (36.-66.) % Lymphocytes (Manual) 5 L (24-44) % Monocytes (Manual) 13 H (0.0-12.0) % Toxic Granulation 1+ Platelet Estimate NORMAL (NORMAL) RBC Morphology NORMAL pO2/FiO2 Ratio % VBG pH (7.32-7.42) VBG pCO2 at Pat Temp (42-55) mm/Hg VBG pO2 at Pat Temp (25-40) mm/Hg VBG HCO3 (22-28) meq/L VBG O2 Sat (Anamaria) (95-100) VBG Base Excess (-2.0-2.0) VBG Hemoglobin VBG Carboxyhemoglobin (0.0-6.9) % T HGB POC Potassium (3.5-5.1) Sodium (137-145) mmol/L Potassium (3.5-5.1) mmol/L Chloride (98-107) mmol/L Carbon Dioxide (22-30) mmol/L Anion Gap (5-15) MEQ/L BUN (9-20) mg/dL Creatinine (0.66-1.25) mg/dL Estimated GFR ML/MIN Glucose (74-106) mg/dL POC Glucometer 323 H 264 H (74 to 106) mg/dL Hemoglobin A1c (4.5-6.0) % Lactic Acid (0.4-2.0) Calcium (8.4-10.2) mg/dL Magnesium (1.6-2.3) mg/dL Total Bilirubin (0.2-1.3) mg/dL AST (17-59) U/L ALT (0-50) U/L Alkaline Phosphatase (38-126) U/L Troponin I (0.000-0.034) ng/mL Serum Total Protein (6.3-8.2) g/dL Albumin (3.5-5.0) g/dL TSH 3rd Generation (0.47-4.68) mIU/L Urine Color (YELLOW) Urine Appearance (CLEAR) Urine pH (5-6) Ur Specific [place] (1.005-1.025) Urine Protein (Negative) Urine Ketones (NEGATIVE) Urine Blood (0-5) Stefan/ul Urine Nitrite (NEGATIVE) Urine Bilirubin (NEGATIVE) Urine Urobilinogen (0-1) mg/dL Ur Leukocyte Esterase (NEGATIVE) Urine WBC (Auto) (0-5) /HPF Urine RBC (Auto) (0-2) /HPF U Epithel Cells (Auto) (FEW) /HPF Urine Bacteria (Auto) (NEGATIVE) /HPF Unidentified Crystals (NEGATIVE) /HPF Urine Yeast (Budding) (NEGATIVE) /HPF Urine Culture Reflexed (NO) Urine Glucose (NEGATIVE) mg/dL Influenza Type A Ag (NEGATIVE) Influenza Type B Ag (NEGATIVE) RSV (PCR) (Negative) 02/29/20 02/29/20 02/29/20 Range/Units 03:00 03:08 04:00 WBC (4.0-10.5) K/mm3 RBC (4.1-5.6) M/mm3 Hgb (12.5-18.0) gm/dl Hct (42-50) % MCV (78-100) fl MCH (26-32) pg MCHC (32-36) g/dl RDW (11.5-14.0) % Plt Count (150-450) K/mm3 MPV (7.5-11.0) fl Segmented Neutrophils (36.-66.) % Lymphocytes (Manual) (24-44) % Monocytes (Manual) (0.0-12.0) % Toxic Granulation Platelet Estimate (NORMAL) RBC Morphology pO2/FiO2 Ratio 21.0 % VBG pH 7.51 H (7.32-7.42) VBG pCO2 at Pat Temp 37 L (42-55) mm/Hg VBG pO2 at Pat Temp 62 H (25-40) mm/Hg VBG HCO3 29.5 H* (22-28) meq/L VBG O2 Sat (Anamaria) 94.6 L (95-100) VBG Base Excess 6.2 H (-2.0-2.0) VBG Hemoglobin 11.7 VBG Carboxyhemoglobin 2.2 (0.0-6.9) % T HGB POC Potassium 4.0 (3.5-5.1) Sodium 134 L D (137-145) mmol/L Potassium 4.0 D (3.5-5.1) mmol/L Chloride 99 D (98-107) mmol/L Carbon Dioxide 28 (22-30) mmol/L Anion Gap 10.3 (5-15) MEQ/L BUN 32 H (9-20) mg/dL Creatinine 1.61 H (0.66-1.25) mg/dL Estimated GFR 48.9 ML/MIN Glucose 183 H (74-106) mg/dL POC Glucometer 174 H (74 to 106) mg/dL Hemoglobin A1c (4.5-6.0) % Lactic Acid 1.2 (0.4-2.0) Calcium 9.0 (8.4-10.2) mg/dL Magnesium (1.6-2.3) mg/dL Total Bilirubin 0.50 (0.2-1.3) mg/dL AST 13 L (17-59) U/L ALT 10 (0-50) U/L Alkaline Phosphatase 155 H (38-126) U/L Troponin I < 0.012 (0.000-0.034) ng/mL Serum Total Protein 7.6 (6.3-8.2) g/dL Albumin 3.6 (3.5-5.0) g/dL TSH 3rd Generation (0.47-4.68) mIU/L Urine Color (YELLOW) Urine Appearance (CLEAR) Urine pH (5-6) Ur Specific [place] (1.005-1.025) Urine Protein (Negative) Urine Ketones (NEGATIVE) Urine Blood (0-5) Stefan/ul Urine Nitrite (NEGATIVE) Urine Bilirubin (NEGATIVE) Urine Urobilinogen (0-1) mg/dL Ur Leukocyte Esterase (NEGATIVE) Urine WBC (Auto) (0-5) /HPF Urine RBC (Auto) (0-2) /HPF U Epithel Cells (Auto) (FEW) /HPF Urine Bacteria (Auto) (NEGATIVE) /HPF Unidentified Crystals (NEGATIVE) /HPF Urine Yeast (Budding) (NEGATIVE) /HPF Urine Culture Reflexed (NO) Urine Glucose (NEGATIVE) mg/dL Influenza Type A Ag (NEGATIVE) Influenza Type B Ag (NEGATIVE) RSV (PCR) (Negative) 02/29/20 02/29/20 02/29/20 Range/Units 04:08 05:00 05:10 WBC (4.0-10.5) K/mm3 RBC (4.1-5.6) M/mm3 Hgb (12.5-18.0) gm/dl Hct (42-50) % MCV (78-100) fl MCH (26-32) pg MCHC (32-36) g/dl RDW (11.5-14.0) % Plt Count (150-450) K/mm3 MPV (7.5-11.0) fl Segmented Neutrophils (36.-66.) % Lymphocytes (Manual) (24-44) % Monocytes (Manual) (0.0-12.0) % Toxic Granulation Platelet Estimate (NORMAL) RBC Morphology pO2/FiO2 Ratio % VBG pH (7.32-7.42) VBG pCO2 at Pat Temp (42-55) mm/Hg VBG pO2 at Pat Temp (25-40) mm/Hg VBG HCO3 (22-28) meq/L VBG O2 Sat ([place]amaria) (95-100) VBG Base Excess (-2.0-2.0) VBG Hemoglobin VBG Carboxyhemoglobin (0.0-6.9) % T HGB POC Potassium (3.5-5.1) Sodium (137-145) mmol/L Potassium (3.5-5.1) mmol/L Chloride (98-107) mmol/L Carbon Dioxide (22-30) mmol/L Anion Gap (5-15) MEQ/L BUN (9-20) mg/dL Creatinine (0.66-1.25) mg/dL Estimated GFR ML/MIN Glucose (74-106) mg/dL POC Glucometer 164 H 276 H (74 to 106) mg/dL Hemoglobin A1c 11.77 H (4.5-6.0) % Lactic Acid (0.4-2.0) Calcium (8.4-10.2) mg/dL Magnesium (1.6-2.3) mg/dL Total Bilirubin (0.2-1.3) mg/dL AST (17-59) U/L ALT (0-50) U/L Alkaline Phosphatase (38-126) U/L Troponin I (0.000-0.034) ng/mL Serum Total Protein (6.3-8.2) g/dL Albumin (3.5-5.0) g/dL TSH 3rd Generation (0.47-4.68) mIU/L Urine Color (YELLOW) Urine Appearance (CLEAR) Urine pH (5-6) Ur Specific [place] (1.005-1.025) Urine Protein (Negative) Urine Ketones (NEGATIVE) Urine Blood (0-5) Stefan/ul Urine Nitrite (NEGATIVE) Urine Bilirubin (NEGATIVE) Urine Urobilinogen (0-1) mg/dL Ur Leukocyte Esterase (NEGATIVE) Urine WBC (Auto) (0-5) /HPF Urine RBC (Auto) (0-2) /HPF U Epithel Cells (Auto) (FEW) /HPF Urine Bacteria (Auto) (NEGATIVE) /HPF Unidentified Crystals (NEGATIVE) /HPF Urine Yeast (Budding) (NEGATIVE) /HPF Urine Culture Reflexed (NO) Urine Glucose (NEGATIVE) mg/dL Influenza Type A Ag (NEGATIVE) Influenza Type B Ag (NEGATIVE) RSV (PCR) (Negative) 02/29/20 02/29/20 02/29/20 Range/Units 06:08 07:16 07:50 WBC (4.0-10.5) K/mm3 RBC (4.1-5.6) M/mm3 Hgb (12.5-18.0) gm/dl Hct (42-50) % MCV (78-100) fl MCH (26-32) pg MCHC (32-36) g/dl RDW (11.5-14.0) % Plt Count (150-450) K/mm3 MPV (7.5-11.0) fl Segmented Neutrophils (36.-66.) % Lymphocytes (Manual) (24-44) % Monocytes (Manual) (0.0-12.0) % Toxic Granulation Platelet Estimate (NORMAL) RBC Morphology pO2/FiO2 Ratio % VBG pH (7.32-7.42) VBG pCO2 at Pat Temp (42-55) mm/Hg VBG pO2 at Pat Temp (25-40) mm/Hg VBG HCO3 (22-28) meq/L VBG O2 Sat (Anamaria) (95-100) VBG Base Excess (-2.0-2.0) VBG Hemoglobin VBG Carboxyhemoglobin (0.0-6.9) % T HGB POC Potassium (3.5-5.1) Sodium (137-145) mmol/L Potassium (3.5-5.1) mmol/L Chloride (98-107) mmol/L Carbon Dioxide (22-30) mmol/L Anion Gap (5-15) MEQ/L BUN (9-20) mg/dL Creatinine (0.66-1.25) mg/dL Estimated GFR ML/MIN Glucose (74-106) mg/dL POC Glucometer 365 H 368 H (74 to 106) mg/dL Hemoglobin A1c (4.5-6.0) % Lactic Acid (0.4-2.0) Calcium (8.4-10.2) mg/dL Magnesium (1.6-2.3) mg/dL Total Bilirubin (0.2-1.3) mg/dL AST (17-59) U/L ALT (0-50) U/L Alkaline Phosphatase (38-126) U/L Troponin I < 0.012 (0.000-0.034) ng/mL Serum Total Protein (6.3-8.2) g/dL Albumin (3.5-5.0) g/dL TSH 3rd Generation (0.47-4.68) mIU/L Urine Color (YELLOW) Urine Appearance (CLEAR) Urine pH (5-6) Ur Specific [place] (1.005-1.025) Urine Protein (Negative) Urine Ketones (NEGATIVE) Urine Blood (0-5) Stefan/ul Urine Nitrite (NEGATIVE) Urine Bilirubin (NEGATIVE) Urine Urobilinogen (0-1) mg/dL Ur Leukocyte Esterase (NEGATIVE) Urine WBC (Auto) (0-5) /HPF Urine RBC (Auto) (0-2) /HPF U Epithel Cells (Auto) (FEW) /HPF Urine Bacteria (Auto) (NEGATIVE) /HPF Unidentified Crystals (NEGATIVE) /HPF Urine Yeast (Budding) (NEGATIVE) /HPF Urine Culture Reflexed (NO) Urine Glucose (NEGATIVE) mg/dL Influenza Type A Ag (NEGATIVE) Influenza Type B Ag (NEGATIVE) RSV (PCR) (Negative) 02/29/20 02/29/20 02/29/20 Range/Units 08:07 09:01 09:10 WBC (4.0-10.5) K/mm3 RBC (4.1-5.6) M/mm3 Hgb (12.5-18.0) gm/dl Hct (42-50) % MCV (78-100) fl MCH (26-32) pg MCHC (32-36) g/dl RDW (11.5-14.0) % Plt Count (150-450) K/mm3 MPV (7.5-11.0) fl Segmented Neutrophils (36.-66.) % Lymphocytes (Manual) (24-44) % Monocytes (Manual) (0.0-12.0) % Toxic Granulation Platelet Estimate (NORMAL) RBC Morphology pO2/FiO2 Ratio % VBG pH (7.32-7.42) VBG pCO2 at Pat Temp (42-55) mm/Hg VBG pO2 at Pat Temp (25-40) mm/Hg VBG HCO3 (22-28) meq/L VBG O2 Sat (Anamaria) (95-100) VBG Base Excess (-2.0-2.0) VBG Hemoglobin VBG Carboxyhemoglobin (0.0-6.9) % T HGB POC Potassium (3.5-5.1) Sodium (137-145) mmol/L Potassium (3.5-5.1) mmol/L Chloride (98-107) mmol/L Carbon Dioxide (22-30) mmol/L Anion Gap (5-15) MEQ/L BUN (9-20) mg/dL Creatinine (0.66-1.25) mg/dL Estimated GFR ML/MIN Glucose (74-106) mg/dL POC Glucometer 342 H 350 H (74 to 106) mg/dL Hemoglobin A1c (4.5-6.0) % Lactic Acid (0.4-2.0) Calcium (8.4-10.2) mg/dL Magnesium (1.6-2.3) mg/dL Total Bilirubin (0.2-1.3) mg/dL AST (17-59) U/L ALT (0-50) U/L Alkaline Phosphatase (38-126) U/L Troponin I < 0.012 (0.000-0.034) ng/mL Serum Total Protein (6.3-8.2) g/dL Albumin (3.5-5.0) g/dL TSH 3rd Generation (0.47-4.68) mIU/L Urine Color (YELLOW) Urine Appearance (CLEAR) Urine pH (5-6) Ur Specific [place] (1.005-1.025) Urine Protein (Negative) Urine Ketones (NEGATIVE) Urine Blood (0-5) Stefan/ul Urine Nitrite (NEGATIVE) Urine Bilirubin (NEGATIVE) Urine Urobilinogen (0-1) mg/dL Ur Leukocyte Esterase (NEGATIVE) Urine WBC (Auto) (0-5) /HPF Urine RBC (Auto) (0-2) /HPF U Epithel Cells (Auto) (FEW) /HPF Urine Bacteria (Auto) (NEGATIVE) /HPF Unidentified Crystals (NEGATIVE) /HPF Urine Yeast (Budding) (NEGATIVE) /HPF Urine Culture Reflexed (NO) Urine Glucose (NEGATIVE) mg/dL Influenza Type A Ag (NEGATIVE) Influenza Type B Ag (NEGATIVE) RSV (PCR) (Negative) 02/29/20 02/29/20 02/29/20 Range/Units 10:02 11:18 12:26 WBC (4.0-10.5) K/mm3 RBC (4.1-5.6) M/mm3 Hgb (12.5-18.0) gm/dl Hct (42-50) % MCV (78-100) fl MCH (26-32) pg MCHC (32-36) g/dl RDW (11.5-14.0) % Plt Count (150-450) K/mm3 MPV (7.5-11.0) fl Segmented Neutrophils (36.-66.) % Lymphocytes (Manual) (24-44) % Monocytes (Manual) (0.0-12.0) % Toxic Granulation Platelet Estimate (NORMAL) RBC Morphology pO2/FiO2 Ratio % VBG pH (7.32-7.42) VBG pCO2 at Pat Temp (42-55) mm/Hg VBG pO2 at Pat Temp (25-40) mm/Hg VBG HCO3 (22-28) meq/L VBG O2 Sat ([place]) (95-100) VBG Base Excess (-2.0-2.0) VBG Hemoglobin VBG Carboxyhemoglobin (0.0-6.9) % T HGB POC Potassium (3.5-5.1) Sodium (137-145) mmol/L Potassium (3.5-5.1) mmol/L Chloride (98-107) mmol/L Carbon Dioxide (22-30) mmol/L Anion Gap (5-15) MEQ/L BUN (9-20) mg/dL Creatinine (0.66-1.25) mg/dL Estimated GFR ML/MIN Glucose (74-106) mg/dL POC Glucometer 379 H 299 H 229 H (74 to 106) mg/dL Hemoglobin A1c (4.5-6.0) % Lactic Acid (0.4-2.0) Calcium (8.4-10.2) mg/dL Magnesium (1.6-2.3) mg/dL Total Bilirubin (0.2-1.3) mg/dL AST (17-59) U/L ALT (0-50) U/L Alkaline Phosphatase (38-126) U/L Troponin I (0.000-0.034) ng/mL Serum Total Protein (6.3-8.2) g/dL Albumin (3.5-5.0) g/dL TSH 3rd Generation (0.47-4.68) mIU/L Urine Color (YELLOW) Urine Appearance (CLEAR) Urine pH (5-6) Ur Specific [place] (1.005-1.025) Urine Protein (Negative) Urine Ketones (NEGATIVE) Urine Blood (0-5) Stefan/ul Urine Nitrite (NEGATIVE) Urine Bilirubin (NEGATIVE) Urine Urobilinogen (0-1) mg/dL Ur Leukocyte Esterase (NEGATIVE) Urine WBC (Auto) (0-5) /HPF Urine RBC (Auto) (0-2) /HPF U Epithel Cells (Auto) (FEW) /HPF Urine Bacteria (Auto) (NEGATIVE) /HPF Unidentified Crystals (NEGATIVE) /HPF Urine Yeast (Budding) (NEGATIVE) /HPF Urine Culture Reflexed (NO) Urine Glucose (NEGATIVE) mg/dL Influenza Type A Ag (NEGATIVE) Influenza Type B Ag (NEGATIVE) RSV (PCR) (Negative) 02/29/20 Range/Units 16:52 WBC (4.0-10.5) K/mm3 RBC (4.1-5.6) M/mm3 Hgb (12.5-18.0) gm/dl Hct (42-50) % MCV (78-100) fl MCH (26-32) pg MCHC (32-36) g/dl RDW (11.5-14.0) % Plt Count (150-450) K/mm3 MPV (7.5-11.0) fl Segmented Neutrophils (36.-66.) % Lymphocytes (Manual) (24-44) % Monocytes (Manual) (0.0-12.0) % Toxic Granulation Platelet Estimate (NORMAL) RBC Morphology pO2/FiO2 Ratio % VBG pH (7.32-7.42) VBG pCO2 at Pat Temp (42-55) mm/Hg VBG pO2 at Pat Temp (25-40) mm/Hg VBG HCO3 (22-28) meq/L VBG O2 Sat ([place]) (95-100) VBG Base Excess (-2.0-2.0) VBG Hemoglobin VBG Carboxyhemoglobin (0.0-6.9) % T HGB POC Potassium (3.5-5.1) Sodium (137-145) mmol/L Potassium (3.5-5.1) mmol/L Chloride (98-107) mmol/L Carbon Dioxide (22-30) mmol/L Anion Gap (5-15) MEQ/L BUN (9-20) mg/dL Creatinine (0.66-1.25) mg/dL Estimated GFR ML/MIN Glucose (74-106) mg/dL POC Glucometer 167 H (74 to 106) mg/dL Hemoglobin A1c (4.5-6.0) % Lactic Acid (0.4-2.0) Calcium (8.4-10.2) mg/dL Magnesium (1.6-2.3) mg/dL Total Bilirubin (0.2-1.3) mg/dL AST (17-59) U/L ALT (0-50) U/L Alkaline Phosphatase (38-126) U/L Troponin I (0.000-0.034) ng/mL Serum Total Protein (6.3-8.2) g/dL Albumin (3.5-5.0) g/dL TSH 3rd Generation (0.47-4.68) mIU/L Urine Color (YELLOW) Urine Appearance (CLEAR) Urine pH (5-6) Ur Specific [place] (1.005-1.025) Urine Protein (Negative) Urine Ketones (NEGATIVE) Urine Blood (0-5) Stefan/ul Urine Nitrite (NEGATIVE) Urine Bilirubin (NEGATIVE) Urine Urobilinogen (0-1) mg/dL Ur Leukocyte Esterase (NEGATIVE) Urine WBC (Auto) (0-5) /HPF Urine RBC (Auto) (0-2) /HPF U Epithel Cells (Auto) (FEW) /HPF Urine Bacteria (Auto) (NEGATIVE) /HPF Unidentified Crystals (NEGATIVE) /HPF Urine Yeast (Budding) (NEGATIVE) /HPF Urine Culture Reflexed (NO) Urine Glucose (NEGATIVE) mg/dL Influenza Type A Ag (NEGATIVE) Influenza Type B Ag (NEGATIVE) RSV (PCR) (Negative) Accuchecks Date 02/29/20 Time 07:00 - Radiology Impressions Radiology Exams & Impressions: Radiology Procedures Category Date Time Status ABDOMEN AND PELVIS W/0 CONTRAS [CT] Routine Exams 02/29/20 08:20 Completed CHEST 1 VIEW (PORTABLE) Stat Exams 02/28/20 20:59 Completed HAND (MINIMUM 3 VIEWS) Stat Exams 02/28/20 22:40 Completed Assessment/Plan (1) Hyperosmolar hyperglycemic state (HHS) Current Visit: Yes Status: Acute Assessment & Plan: improved Code(s): E11.00 - TYPE 2 DIAB W HYPROSM W/O NONKET HYPRGLY-HYPROS COMA (N[facility]); E11.65 - TYPE 2 DIABETES MELLITUS WITH HYPERGLYCEMIA (2) Hydronephrosis Current Visit: Yes Status: Acute Qualifiers: Hydronephrosis type: unspecified Qualified Code(s): N13.30 - Unspecified hydronephrosis Assessment & Plan: massive bilateral hydronephrosis and hydroureter without calculi Code(s): N13.30 - UNSPECIFIED HYDRONEPHROSIS (3) Leukocytosis Current Visit: Yes Status: Acute Assessment & Plan: blood and urine cultures pending Code(s): D72.829 - ELEVATED WHITE BLOOD CELL COUNT, UNSPECIFIED (4) UTI (urinary tract infection) Current Visit: Yes Status: Acute Code(s): N39.0 - URINARY TRACT INFECTION, SITE NOT SPECIFIED Hospital Summary - Hospital Course Hospital Course: Patient was admitted through ER with hyperglycemia = 800 and leukocytosis =20 ,000 - see details in HPI. CT abd/pelvis was completed today which showed massive bilateral hydronephrosis,hydroureter without calculi. [facility] Dr Timo Felipe for evaluation and treatment with Urology which is not available at [facility]. - Vitals & Intake/Output Vital Signs: Vital Signs Temperature 98.2 F 02/29/20 16:00 Pulse Rate 95 H 02/29/20 16:00 Respiratory Rate 16 02/29/20 16:00 Blood Pressure 149/81 02/29/20 16:00 O2 Sat by Pulse Oximetry 96 02/29/20 16:00 Intake & Output: Intake & Output 02/27/20 02/28/20 02/29/20 03/01/20 11:59 11:59 11:59 11:59 Intake Total 1201 Output Total 1150 Balance 51 Weight 85.6 kg 85.6 kg - Lab Result Diagrams: 02/29/20 03:00 02/29/20 03:00 Lab Results-Last 24 Hrs: Lab Results-Last 24 Hours 02/28/20 02/28/20 02/28/20 Range/Units 21:00 21:00 21:00 WBC 21.7 H (4.0-10.5) K/mm3 RBC 4.39 (4.1-5.6) M/mm3 Hgb 12.6 (12.5-18.0) gm/dl Hct 36.2 L (42-50) % MCV 82.5 (78-100) fl MCH 28.7 (26-32) pg MCHC 34.8 (32-36) g/dl RDW 11.6 (11.5-14.0) % Plt Count 408 (150-450) K/mm3 MPV 9.1 (7.5-11.0) fl Segmented Neutrophils 94 H (36.-66.) % Lymphocytes (Manual) 4 L (24-44) % Monocytes (Manual) 2 (0.0-12.0) % Toxic Granulation Platelet Estimate NORMAL (NORMAL) RBC Morphology NORMAL pO2/FiO2 Ratio % VBG pH (7.32-7.42) VBG pCO2 at Pat Temp (42-55) mm/Hg VBG pO2 at Pat Temp (25-40) mm/Hg VBG HCO3 (22-28) meq/L VBG O2 Sat (Anamaria) (95-100) VBG Base Excess (-2.0-2.0) VBG Hemoglobin VBG Carboxyhemoglobin (0.0-6.9) % T HGB POC Potassium (3.5-5.1) Sodium 124 L (137-145) mmol/L Potassium 5.1 (3.5-5.1) mmol/L Chloride 86 L (98-107) mmol/L Carbon Dioxide 27 (22-30) mmol/L Anion Gap 15.6 H (5-15) MEQ/L BUN 35 H (9-20) mg/dL Creatinine 1.71 H (0.66-1.25) mg/dL Estimated GFR 45.6 ML/MIN Glucose 800 H* (74-106) mg/dL POC Glucometer (74 to 106) mg/dL Hemoglobin A1c (4.5-6.0) % Lactic Acid (0.4-2.0) Calcium 9.0 (8.4-10.2) mg/dL Magnesium 2.3 (1.6-2.3) mg/dL Total Bilirubin 0.70 (0.2-1.3) mg/dL AST 16 L (17-59) U/L ALT 13 (0-50) U/L Alkaline Phosphatase 196 H (38-126) U/L Troponin I < 0.012 (0.000-0.034) ng/mL Serum Total Protein 7.9 (6.3-8.2) g/dL Albumin 3.8 (3.5-5.0) g/dL TSH 3rd Generation (0.47-4.68) mIU/L Urine Color (YELLOW) Urine Appearance (CLEAR) Urine pH (5-6) Ur Specific [place] (1.005-1.025) Urine Protein (Negative) Urine Ketones (NEGATIVE) Urine Blood (0-5) Stefan/ul Urine Nitrite (NEGATIVE) Urine Bilirubin (NEGATIVE) Urine Urobilinogen (0-1) mg/dL Ur Leukocyte Esterase (NEGATIVE) Urine WBC (Auto) (0-5) /HPF Urine RBC (Auto) (0-2) /HPF U Epithel Cells (Auto) (FEW) /HPF Urine Bacteria (Auto) (NEGATIVE) /HPF Unidentified Crystals (NEGATIVE) /HPF Urine Yeast (Budding) (NEGATIVE) /HPF Urine Culture Reflexed (NO) Urine Glucose (NEGATIVE) mg/dL Influenza Type A Ag (NEGATIVE) Influenza Type B Ag (NEGATIVE) RSV (PCR) (Negative) 02/28/20 02/28/20 02/28/20 Range/Units 21:00 21:00 21:30 WBC (4.0-10.5) K/mm3 RBC (4.1-5.6) M/mm3 Hgb (12.5-18.0) gm/dl Hct (42-50) % MCV (78-100) fl MCH (26-32) pg MCHC (32-36) g/dl RDW (11.5-14.0) % Plt Count (150-450) K/mm3 MPV (7.5-11.0) fl Segmented Neutrophils (36.-66.) % Lymphocytes (Manual) (24-44) % Monocytes (Manual) (0.0-12.0) % Toxic Granulation Platelet Estimate (NORMAL) RBC Morphology pO2/FiO2 Ratio % VBG pH (7.32-7.42) VBG pCO2 at Pat Temp (42-55) mm/Hg VBG pO2 at Pat Temp (25-40) mm/Hg VBG HCO3 (22-28) meq/L VBG O2 Sat (Anamaria) (95-100) VBG Base Excess (-2.0-2.0) VBG Hemoglobin VBG Carboxyhemoglobin (0.0-6.9) % T HGB POC Potassium (3.5-5.1) Sodium (137-145) mmol/L Potassium (3.5-5.1) mmol/L Chloride (98-107) mmol/L Carbon Dioxide (22-30) mmol/L Anion Gap (5-15) MEQ/L BUN (9-20) mg/dL Creatinine (0.66-1.25) mg/dL Estimated GFR ML/MIN Glucose (74-106) mg/dL POC Glucometer (74 to 106) mg/dL Hemoglobin A1c (4.5-6.0) % Lactic Acid (0.4-2.0) Calcium (8.4-10.2) mg/dL Magnesium (1.6-2.3) mg/dL Total Bilirubin (0.2-1.3) mg/dL AST (17-59) U/L ALT (0-50) U/L Alkaline Phosphatase (38-126) U/L Troponin I (0.000-0.034) ng/mL Serum Total Protein (6.3-8.2) g/dL Albumin (3.5-5.0) g/dL TSH 3rd Generation 1.300 (0.47-4.68) mIU/L Urine Color YELLOW (YELLOW) Urine Appearance CLOUDY (CLEAR) Urine pH 6.0 (5-6) Ur Specific [place] 1.014 (1.005-1.025) Urine Protein NEGATIVE (Negative) Urine Ketones NEGATIVE (NEGATIVE) Urine Blood MODERATE (0-5) Stefan/ul Urine Nitrite NEGATIVE (NEGATIVE) Urine Bilirubin NEGATIVE (NEGATIVE) Urine Urobilinogen NEGATIVE (0-1) mg/dL Ur Leukocyte Esterase LARGE (NEGATIVE) Urine WBC (Auto) >100 (0-5) /HPF Urine RBC (Auto) 6-10 (0-2) /HPF U Epithel Cells (Auto) NONE (FEW) /HPF Urine Bacteria (Auto) RARE (NEGATIVE) /HPF Unidentified Crystals 2-5 (NEGATIVE) /HPF Urine Yeast (Budding) Rare (NEGATIVE) /HPF Urine Culture Reflexed YES (NO) Urine Glucose >=500 (NEGATIVE) mg/dL Influenza Type A Ag NEGATIVE (NEGATIVE) Influenza Type B Ag NEGATIVE (NEGATIVE) RSV (PCR) NEGATIVE (Negative) 02/28/20 02/28/20 02/29/20 Range/Units 21:56 23:48 00:00 WBC (4.0-10.5) K/mm3 RBC (4.1-5.6) M/mm3 Hgb (12.5-18.0) gm/dl Hct (42-50) % MCV (78-100) fl MCH (26-32) pg MCHC (32-36) g/dl RDW (11.5-14.0) % Plt Count (150-450) K/mm3 MPV (7.5-11.0) fl Segmented Neutrophils (36.-66.) % Lymphocytes (Manual) (24-44) % Monocytes (Manual) (0.0-12.0) % Toxic Granulation Platelet Estimate (NORMAL) RBC Morphology pO2/FiO2 Ratio 21.0 % VBG pH 7.53 H (7.32-7.42) VBG pCO2 at Pat Temp 34 L (42-55) mm/Hg VBG pO2 at Pat Temp 66 H (25-40) mm/Hg VBG HCO3 28.4 H (22-28) meq/L VBG O2 Sat (Anamaria) 95.5 (95-100) VBG Base Excess 5.8 H (-2.0-2.0) VBG Hemoglobin 13.0 VBG Carboxyhemoglobin 3.1 (0.0-6.9) % T HGB POC Potassium 5.1 (3.5-5.1) Sodium (137-145) mmol/L Potassium (3.5-5.1) mmol/L Chloride (98-107) mmol/L Carbon Dioxide (22-30) mmol/L Anion Gap (5-15) MEQ/L BUN (9-20) mg/dL Creatinine (0.66-1.25) mg/dL Estimated GFR ML/MIN Glucose (74-106) mg/dL POC Glucometer (74 to 106) mg/dL Hemoglobin A1c (4.5-6.0) % Lactic Acid 2.5 H (0.4-2.0) Calcium (8.4-10.2) mg/dL Magnesium (1.6-2.3) mg/dL Total Bilirubin (0.2-1.3) mg/dL AST (17-59) U/L ALT (0-50) U/L Alkaline Phosphatase (38-126) U/L Troponin I < 0.012 (0.000-0.034) ng/mL Serum Total Protein (6.3-8.2) g/dL Albumin (3.5-5.0) g/dL TSH 3rd Generation (0.47-4.68) mIU/L Urine Color (YELLOW) Urine Appearance (CLEAR) Urine pH (5-6) Ur Specific [place] (1.005-1.025) Urine Protein (Negative) Urine Ketones (NEGATIVE) Urine Blood (0-5) Stefan/ul Urine Nitrite (NEGATIVE) Urine Bilirubin (NEGATIVE) Urine Urobilinogen (0-1) mg/dL Ur Leukocyte Esterase (NEGATIVE) Urine WBC (Auto) (0-5) /HPF Urine RBC (Auto) (0-2) /HPF U Epithel Cells (Auto) (FEW) /HPF Urine Bacteria (Auto) (NEGATIVE) /HPF Unidentified Crystals (NEGATIVE) /HPF Urine Yeast (Budding) (NEGATIVE) /HPF Urine Culture Reflexed (NO) Urine Glucose (NEGATIVE) mg/dL Influenza Type A Ag (NEGATIVE) Influenza Type B Ag (NEGATIVE) RSV (PCR) (Negative) 02/29/20 02/29/20 02/29/20 Range/Units 01:24 02:01 03:00 WBC 20.5 H (4.0-10.5) K/mm3 RBC 3.96 L (4.1-5.6) M/mm3 Hgb 11.4 L (12.5-18.0) gm/dl Hct 32.8 L (42-50) % MCV 82.8 (78-100) fl MCH 28.8 (26-32) pg MCHC 34.8 (32-36) g/dl RDW 11.5 (11.5-14.0) % Plt Count 369 (150-450) K/mm3 MPV 8.5 (7.5-11.0) fl Segmented Neutrophils 82 H (36.-66.) % Lymphocytes (Manual) 5 L (24-44) % Monocytes (Manual) 13 H (0.0-12.0) % Toxic Granulation 1+ Platelet Estimate NORMAL (NORMAL) RBC Morphology NORMAL pO2/FiO2 Ratio % VBG pH (7.32-7.42) VBG pCO2 at Pat Temp (42-55) mm/Hg VBG pO2 at Pat Temp (25-40) mm/Hg VBG HCO3 (22-28) meq/L VBG O2 Sat (Anamaria) (95-100) VBG Base Excess (-2.0-2.0) VBG Hemoglobin VBG Carboxyhemoglobin (0.0-6.9) % T HGB POC Potassium (3.5-5.1) Sodium (137-145) mmol/L Potassium (3.5-5.1) mmol/L Chloride (98-107) mmol/L Carbon Dioxide (22-30) mmol/L Anion Gap (5-15) MEQ/L BUN (9-20) mg/dL Creatinine (0.66-1.25) mg/dL Estimated GFR ML/MIN Glucose (74-106) mg/dL POC Glucometer 323 H 264 H (74 to 106) mg/dL Hemoglobin A1c (4.5-6.0) % Lactic Acid (0.4-2.0) Calcium (8.4-10.2) mg/dL Magnesium (1.6-2.3) mg/dL Total Bilirubin (0.2-1.3) mg/dL AST (17-59) U/L ALT (0-50) U/L Alkaline Phosphatase (38-126) U/L Troponin I (0.000-0.034) ng/mL Serum Total Protein (6.3-8.2) g/dL Albumin (3.5-5.0) g/dL TSH 3rd Generation (0.47-4.68) mIU/L Urine Color (YELLOW) Urine Appearance (CLEAR) Urine pH (5-6) Ur Specific [place] (1.005-1.025) Urine Protein (Negative) Urine Ketones (NEGATIVE) Urine Blood (0-5) Stefan/ul Urine Nitrite (NEGATIVE) Urine Bilirubin (NEGATIVE) Urine Urobilinogen (0-1) mg/dL Ur Leukocyte Esterase (NEGATIVE) Urine WBC (Auto) (0-5) /HPF Urine RBC (Auto) (0-2) /HPF U Epithel Cells (Auto) (FEW) /HPF Urine Bacteria (Auto) (NEGATIVE) /HPF Unidentified Crystals (NEGATIVE) /HPF Urine Yeast (Budding) (NEGATIVE) /HPF Urine Culture Reflexed (NO) Urine Glucose (NEGATIVE) mg/dL Influenza Type A Ag (NEGATIVE) Influenza Type B Ag (NEGATIVE) RSV (PCR) (Negative) 02/29/20 02/29/20 02/29/20 Range/Units 03:00 03:08 04:00 WBC (4.0-10.5) K/mm3 RBC (4.1-5.6) M/mm3 Hgb (12.5-18.0) gm/dl Hct (42-50) % MCV (78-100) fl MCH (26-32) pg MCHC (32-36) g/dl RDW (11.5-14.0) % Plt Count (150-450) K/mm3 MPV (7.5-11.0) fl Segmented Neutrophils (36.-66.) % Lymphocytes (Manual) (24-44) % Monocytes (Manual) (0.0-12.0) % Toxic Granulation Platelet Estimate (NORMAL) RBC Morphology pO2/FiO2 Ratio 21.0 % VBG pH 7.51 H (7.32-7.42) VBG pCO2 at Pat Temp 37 L (42-55) mm/Hg VBG pO2 at Pat Temp 62 H (25-40) mm/Hg VBG HCO3 29.5 H* (22-28) meq/L VBG O2 Sat (Anamaria) 94.6 L (95-100) VBG Base Excess 6.2 H (-2.0-2.0) VBG Hemoglobin 11.7 VBG Carboxyhemoglobin 2.2 (0.0-6.9) % T HGB POC Potassium 4.0 (3.5-5.1) Sodium 134 L D (137-145) mmol/L Potassium 4.0 D (3.5-5.1) mmol/L Chloride 99 D (98-107) mmol/L Carbon Dioxide 28 (22-30) mmol/L Anion Gap 10.3 (5-15) MEQ/L BUN 32 H (9-20) mg/dL Creatinine 1.61 H (0.66-1.25) mg/dL Estimated GFR 48.9 ML/MIN Glucose 183 H (74-106) mg/dL POC Glucometer 174 H (74 to 106) mg/dL Hemoglobin A1c (4.5-6.0) % Lactic Acid 1.2 (0.4-2.0) Calcium 9.0 (8.4-10.2) mg/dL Magnesium (1.6-2.3) mg/dL Total Bilirubin 0.50 (0.2-1.3) mg/dL AST 13 L (17-59) U/L ALT 10 (0-50) U/L Alkaline Phosphatase 155 H (38-126) U/L Troponin I < 0.012 (0.000-0.034) ng/mL Serum Total Protein 7.6 (6.3-8.2) g/dL Albumin 3.6 (3.5-5.0) g/dL TSH 3rd Generation (0.47-4.68) mIU/L Urine Color (YELLOW) Urine Appearance (CLEAR) Urine pH (5-6) Ur Specific [place] (1.005-1.025) Urine Protein (Negative) Urine Ketones (NEGATIVE) Urine Blood (0-5) Stefan/ul Urine Nitrite (NEGATIVE) Urine Bilirubin (NEGATIVE) Urine Urobilinogen (0-1) mg/dL Ur Leukocyte Esterase (NEGATIVE) Urine WBC (Auto) (0-5) /HPF Urine RBC (Auto) (0-2) /HPF U Epithel Cells (Auto) (FEW) /HPF Urine Bacteria (Auto) (NEGATIVE) /HPF Unidentified Crystals (NEGATIVE) /HPF Urine Yeast (Budding) (NEGATIVE) /HPF Urine Culture Reflexed (NO) Urine Glucose (NEGATIVE) mg/dL Influenza Type A Ag (NEGATIVE) Influenza Type B Ag (NEGATIVE) RSV (PCR) (Negative) 02/29/20 02/29/20 02/29/20 Range/Units 04:08 05:00 05:10 WBC (4.0-10.5) K/mm3 RBC (4.1-5.6) M/mm3 Hgb (12.5-18.0) gm/dl Hct (42-50) % MCV (78-100) fl MCH (26-32) pg MCHC (32-36) g/dl RDW (11.5-14.0) % Plt Count (150-450) K/mm3 MPV (7.5-11.0) fl Segmented Neutrophils (36.-66.) % Lymphocytes (Manual) (24-44) % Monocytes (Manual) (0.0-12.0) % Toxic Granulation Platelet Estimate (NORMAL) RBC Morphology pO2/FiO2 Ratio % VBG pH (7.32-7.42) VBG pCO2 at Pat Temp (42-55) mm/Hg VBG pO2 at Pat Temp (25-40) mm/Hg VBG HCO3 (22-28) meq/L VBG O2 Sat ([place]) (95-100) VBG Base Excess (-2.0-2.0) VBG Hemoglobin VBG Carboxyhemoglobin (0.0-6.9) % T HGB POC Potassium (3.5-5.1) Sodium (137-145) mmol/L Potassium (3.5-5.1) mmol/L Chloride (98-107) mmol/L Carbon Dioxide (22-30) mmol/L Anion Gap (5-15) MEQ/L BUN (9-20) mg/dL Creatinine (0.66-1.25) mg/dL Estimated GFR ML/MIN Glucose (74-106) mg/dL POC Glucometer 164 H 276 H (74 to 106) mg/dL Hemoglobin A1c 11.77 H (4.5-6.0) % Lactic Acid (0.4-2.0) Calcium (8.4-10.2) mg/dL Magnesium (1.6-2.3) mg/dL Total Bilirubin (0.2-1.3) mg/dL AST (17-59) U/L ALT (0-50) U/L Alkaline Phosphatase (38-126) U/L Troponin I (0.000-0.034) ng/mL Serum Total Protein (6.3-8.2) g/dL Albumin (3.5-5.0) g/dL TSH 3rd Generation (0.47-4.68) mIU/L Urine Color (YELLOW) Urine Appearance (CLEAR) Urine pH (5-6) Ur Specific [place] (1.005-1.025) Urine Protein (Negative) Urine Ketones (NEGATIVE) Urine Blood (0-5) Stefan/ul Urine Nitrite (NEGATIVE) Urine Bilirubin (NEGATIVE) Urine Urobilinogen (0-1) mg/dL Ur Leukocyte Esterase (NEGATIVE) Urine WBC (Auto) (0-5) /HPF Urine RBC (Auto) (0-2) /HPF U Epithel Cells (Auto) (FEW) /HPF Urine Bacteria (Auto) (NEGATIVE) /HPF Unidentified Crystals (NEGATIVE) /HPF Urine Yeast (Budding) (NEGATIVE) /HPF Urine Culture Reflexed (NO) Urine Glucose (NEGATIVE) mg/dL Influenza Type A Ag (NEGATIVE) Influenza Type B Ag (NEGATIVE) RSV (PCR) (Negative) 10/16/20 10/16/20 10/16/20 Range/Units 06:08 07:16 07:50 WBC (4.0-10.5) K/mm3 RBC (4.1-5.6) M/mm3 Hgb (12.5-18.0) gm/dl Hct (42-50) % MCV (78-100) fl MCH (26-32) pg MCHC (32-36) g/dl RDW (11.5-14.0) % Plt Count (150-450) K/mm3 MPV (7.5-11.0) fl Segmented Neutrophils (36.-66.) % Lymphocytes (Manual) (24-44) % Monocytes (Manual) (0.0-12.0) % Toxic Granulation Platelet Estimate (NORMAL) RBC Morphology pO2/FiO2 Ratio % VBG pH (7.32-7.42) VBG pCO2 at Pat Temp (42-55) mm/Hg VBG pO2 at Pat Temp (25-40) mm/Hg VBG HCO3 (22-28) meq/L VBG O2 Sat (Anamaria) (95-100) VBG Base Excess (-2.0-2.0) VBG Hemoglobin VBG Carboxyhemoglobin (0.0-6.9) % T HGB POC Potassium (3.5-5.1) Sodium (137-145) mmol/L Potassium (3.5-5.1) mmol/L Chloride (98-107) mmol/L Carbon Dioxide (22-30) mmol/L Anion Gap (5-15) MEQ/L BUN (9-20) mg/dL Creatinine (0.66-1.25) mg/dL Estimated GFR ML/MIN Glucose (74-106) mg/dL POC Glucometer 365 H 368 H (74 to 106) mg/dL Hemoglobin A1c (4.5-6.0) % Lactic Acid (0.4-2.0) Calcium (8.4-10.2) mg/dL Magnesium (1.6-2.3) mg/dL Total Bilirubin (0.2-1.3) mg/dL AST (17-59) U/L ALT (0-50) U/L Alkaline Phosphatase (38-126) U/L Troponin I < 0.012 (0.000-0.034) ng/mL Serum Total Protein (6.3-8.2) g/dL Albumin (3.5-5.0) g/dL TSH 3rd Generation (0.47-4.68) mIU/L Urine Color (YELLOW) Urine Appearance (CLEAR) Urine pH (5-6) Ur Specific [place] (1.005-1.025) Urine Protein (Negative) Urine Ketones (NEGATIVE) Urine Blood (0-5) Stefan/ul Urine Nitrite (NEGATIVE) Urine Bilirubin (NEGATIVE) Urine Urobilinogen (0-1) mg/dL Ur Leukocyte Esterase (NEGATIVE) Urine WBC (Auto) (0-5) /HPF Urine RBC (Auto) (0-2) /HPF U Epithel Cells (Auto) (FEW) /HPF Urine Bacteria (Auto) (NEGATIVE) /HPF Unidentified Crystals (NEGATIVE) /HPF Urine Yeast (Budding) (NEGATIVE) /HPF Urine Culture Reflexed (NO) Urine Glucose (NEGATIVE) mg/dL Influenza Type A Ag (NEGATIVE) Influenza Type B Ag (NEGATIVE) RSV (PCR) (Negative) 02/29/20 02/29/20 02/29/20 Range/Units 08:07 09:01 09:10 WBC (4.0-10.5) K/mm3 RBC (4.1-5.6) M/mm3 Hgb (12.5-18.0) gm/dl Hct (42-50) % MCV (78-100) fl MCH (26-32) pg MCHC (32-36) g/dl RDW (11.5-14.0) % Plt Count (150-450) K/mm3 MPV (7.5-11.0) fl Segmented Neutrophils (36.-66.) % Lymphocytes (Manual) (24-44) % Monocytes (Manual) (0.0-12.0) % Toxic Granulation Platelet Estimate (NORMAL) RBC Morphology pO2/FiO2 Ratio % VBG pH (7.32-7.42) VBG pCO2 at Pat Temp (42-55) mm/Hg VBG pO2 at Pat Temp (25-40) mm/Hg VBG HCO3 (22-28) meq/L VBG O2 Sat (Anamaria) (95-100) VBG Base Excess (-2.0-2.0) VBG Hemoglobin VBG Carboxyhemoglobin (0.0-6.9) % T HGB POC Potassium (3.5-5.1) Sodium (137-145) mmol/L Potassium (3.5-5.1) mmol/L Chloride (98-107) mmol/L Carbon Dioxide (22-30) mmol/L Anion Gap (5-15) MEQ/L BUN (9-20) mg/dL Creatinine (0.66-1.25) mg/dL Estimated GFR ML/MIN Glucose (74-106) mg/dL POC Glucometer 342 H 350 H (74 to 106) mg/dL Hemoglobin A1c (4.5-6.0) % Lactic Acid (0.4-2.0) Calcium (8.4-10.2) mg/dL Magnesium (1.6-2.3) mg/dL Total Bilirubin (0.2-1.3) mg/dL AST (17-59) U/L ALT (0-50) U/L Alkaline Phosphatase (38-126) U/L Troponin I < 0.012 (0.000-0.034) ng/mL Serum Total Protein (6.3-8.2) g/dL Albumin (3.5-5.0) g/dL TSH 3rd Generation (0.47-4.68) mIU/L Urine Color (YELLOW) Urine Appearance (CLEAR) Urine pH (5-6) Ur Specific [place] (1.005-1.025) Urine Protein (Negative) Urine Ketones (NEGATIVE) Urine Blood (0-5) Stefan/ul Urine Nitrite (NEGATIVE) Urine Bilirubin (NEGATIVE) Urine Urobilinogen (0-1) mg/dL Ur Leukocyte Esterase (NEGATIVE) Urine WBC (Auto) (0-5) /HPF Urine RBC (Auto) (0-2) /HPF U Epithel Cells (Auto) (FEW) /HPF Urine Bacteria (Auto) (NEGATIVE) /HPF Unidentified Crystals (NEGATIVE) /HPF Urine Yeast (Budding) (NEGATIVE) /HPF Urine Culture Reflexed (NO) Urine Glucose (NEGATIVE) mg/dL Influenza Type A Ag (NEGATIVE) Influenza Type B Ag (NEGATIVE) RSV (PCR) (Negative) 02/29/20 02/29/20 02/29/20 Range/Units 10:02 11:18 12:26 WBC (4.0-10.5) K/mm3 RBC (4.1-5.6) M/mm3 Hgb (12.5-18.0) gm/dl Hct (42-50) % MCV (78-100) fl MCH (26-32) pg MCHC (32-36) g/dl RDW (11.5-14.0) % Plt Count (150-450) K/mm3 MPV (7.5-11.0) fl Segmented Neutrophils (36.-66.) % Lymphocytes (Manual) (24-44) % Monocytes (Manual) (0.0-12.0) % Toxic Granulation Platelet Estimate (NORMAL) RBC Morphology pO2/FiO2 Ratio % VBG pH (7.32-7.42) VBG pCO2 at Pat Temp (42-55) mm/Hg VBG pO2 at Pat Temp (25-40) mm/Hg VBG HCO3 (22-28) meq/L VBG O2 Sat (Anamaria) (95-100) VBG Base Excess (-2.0-2.0) VBG Hemoglobin VBG Carboxyhemoglobin (0.0-6.9) % T HGB POC Potassium (3.5-5.1) Sodium (137-145) mmol/L Potassium (3.5-5.1) mmol/L Chloride (98-107) mmol/L Carbon Dioxide (22-30) mmol/L Anion Gap (5-15) MEQ/L BUN (9-20) mg/dL Creatinine (0.66-1.25) mg/dL Estimated GFR ML/MIN Glucose (74-106) mg/dL POC Glucometer 379 H 299 H 229 H (74 to 106) mg/dL Hemoglobin A1c (4.5-6.0) % Lactic Acid (0.4-2.0) Calcium (8.4-10.2) mg/dL Magnesium (1.6-2.3) mg/dL Total Bilirubin (0.2-1.3) mg/dL AST (17-59) U/L ALT (0-50) U/L Alkaline Phosphatase (38-126) U/L Troponin I (0.000-0.034) ng/mL Serum Total Protein (6.3-8.2) g/dL Albumin (3.5-5.0) g/dL TSH 3rd Generation (0.47-4.68) mIU/L Urine Color (YELLOW) Urine Appearance (CLEAR) Urine pH (5-6) Ur Specific [place] (1.005-1.025) Urine Protein (Negative) Urine Ketones (NEGATIVE) Urine Blood (0-5) Stefan/ul Urine Nitrite (NEGATIVE) Urine Bilirubin (NEGATIVE) Urine Urobilinogen (0-1) mg/dL Ur Leukocyte Esterase (NEGATIVE) Urine WBC (Auto) (0-5) /HPF Urine RBC (Auto) (0-2) /HPF U Epithel Cells (Auto) (FEW) /HPF Urine Bacteria (Auto) (NEGATIVE) /HPF Unidentified Crystals (NEGATIVE) /HPF Urine Yeast (Budding) (NEGATIVE) /HPF Urine Culture Reflexed (NO) Urine Glucose (NEGATIVE) mg/dL Influenza Type A Ag (NEGATIVE) Influenza Type B Ag (NEGATIVE) RSV (PCR) (Negative) 02/29/20 Range/Units 16:52 WBC (4.0-10.5) K/mm3 RBC (4.1-5.6) M/mm3 Hgb (12.5-18.0) gm/dl Hct (42-50) % MCV (78-100) fl MCH (26-32) pg MCHC (32-36) g/dl RDW (11.5-14.0) % Plt Count (150-450) K/mm3 MPV (7.5-11.0) fl Segmented Neutrophils (36.-66.) % Lymphocytes (Manual) (24-44) % Monocytes (Manual) (0.0-12.0) % Toxic Granulation Platelet Estimate (NORMAL) RBC Morphology pO2/FiO2 Ratio % VBG pH (7.32-7.42) VBG pCO2 at Pat Temp (42-55) mm/Hg VBG pO2 at Pat Temp (25-40) mm/Hg VBG HCO3 (22-28) meq/L VBG O2 Sat ([place]) (95-100) VBG Base Excess (-2.0-2.0) VBG Hemoglobin VBG Carboxyhemoglobin (0.0-6.9) % T HGB POC Potassium (3.5-5.1) Sodium (137-145) mmol/L Potassium (3.5-5.1) mmol/L Chloride (98-107) mmol/L Carbon Dioxide (22-30) mmol/L Anion Gap (5-15) MEQ/L BUN (9-20) mg/dL Creatinine (0.66-1.25) mg/dL Estimated GFR ML/MIN Glucose (74-106) mg/dL POC Glucometer 167 H (74 to 106) mg/dL Hemoglobin A1c (4.5-6.0) % Lactic Acid (0.4-2.0) Calcium (8.4-10.2) mg/dL Magnesium (1.6-2.3) mg/dL Total Bilirubin (0.2-1.3) mg/dL AST (17-59) U/L ALT (0-50) U/L Alkaline Phosphatase (38-126) U/L Troponin I (0.000-0.034) ng/mL Serum Total Protein (6.3-8.2) g/dL Albumin (3.5-5.0) g/dL TSH 3rd Generation (0.47-4.68) mIU/L Urine Color (YELLOW) Urine Appearance (CLEAR) Urine pH (5-6) Ur Specific [place] (1.005-1.025) Urine Protein (Negative) Urine Ketones (NEGATIVE) Urine Blood (0-5) Stefan/ul Urine Nitrite (NEGATIVE) Urine Bilirubin (NEGATIVE) Urine Urobilinogen (0-1) mg/dL Ur Leukocyte Esterase (NEGATIVE) Urine WBC (Auto) (0-5) /HPF Urine RBC (Auto) (0-2) /HPF U Epithel Cells (Auto) (FEW) /HPF Urine Bacteria (Auto) (NEGATIVE) /HPF Unidentified Crystals (NEGATIVE) /HPF Urine Yeast (Budding) (NEGATIVE) /HPF Urine Culture Reflexed (NO) Urine Glucose (NEGATIVE) mg/dL Influenza Type A Ag (NEGATIVE) Influenza Type B Ag (NEGATIVE) RSV (PCR) (Negative) Micro Results-Entire Visit: Accuchecks Date 02/29/20 Time 07:00 - Radiology Exams Ordered Rad Exams-Entire Visit: Radiology Procedures Category Date Time Status ABDOMEN AND PELVIS W/0 CONTRAS [CT] Routine Exams 02/29/20 08:20 Completed CHEST 1 VIEW (PORTABLE) Stat Exams 02/28/20 20:59 Completed HAND (MINIMUM 3 VIEWS) Stat Exams 02/28/20 22:40 Completed - [facility]charge Dis[facility] Condition: Stable Prescriptions: No Action No Reportable Medications [No Reported Medications] Follow up with: EMILY MATHUR MD [ACTIVE STAFF] - 1 Week
[2020-03-01] MEDS ORDERED: Lantus Insulin SQ SCH (08:00)
== END 2020-02-29 18:10 | disposition short-term general hospital (02) ==
LOC: ED 20:46 → OBSVTOIN 02-29 01:03 → INTOOBSV 02-29 01:03 → ICU 02-29 01:03
PROVIDERS: ADMIT Family Medicine; ATTEND Family Medicine
DX: E11.00 Type 2 diabetes mellitus with hyperosmolarity without nonketotic hyperglycemic-hyperosmolar coma (NKHHC) (principal); E11.65 Type 2 diabetes mellitus with hyperglycemia; M79.10 Myalgia, unspecified site; R53.83 Other fatigue; N39.0 Urinary tract infection, site not specified; R53.1 Weakness; N13.30 Unspecified hydronephrosis; D72.829 Elevated white blood cell count, unspecified; Z79.4 Long term (current) use of insulin
CPT/HCPCS: 36000; 36415; 71045; 73130; 74176; 80053; 81001; 82805; 82962; 83036; 83605; 83735; 84443; 84484; 85025; 87040; 87086; 87186; 87631; 93005; 93041; 94760; 96360; 96361; 96365; 96366; 96367; 96374; 99285; J1815; J1817; J2270; A9270-GY; G0378; J3370

== ENCOUNTER 2024-06-28 18:05 | Emergency (ER) | payer MEDICAID, OTHER ==
--- NOTE | 2024-06-28 18:14 | ERPHSYRPT ---
- History of Present Illness Time Seen by Provider: 06/28/24 18:14 Source: patient Exam Limitations: no limitations Physician History: This is a 53-year-old noncompliant white male patient who arrives by private vehicle. He no longer has a primary care provider. He states he is diabetic and has a history of hypertension but he has not been on any medicines for 3 to 4 months. He does not have chest pain but he has shortness of breath and a cough as well as body aches and headache and fever. He denies nausea vomiting and diarrhea. He has no abdominal pain Timing/Duration: day(s) (Present for a few days), worse (Symptoms worse today) Severity of Dyspnea-Max: mild Severity of Dyspnea-Current: mild Possible Cause: no prior episodes Modifying Factors: Improves With: coughing Associated Symptoms: cough, No chest pain/discomfort Allergies/Adverse Reactions: No Known Drug Allergies Allergy (Verified 06/28/24 18:09) Home Medications: No Reportable Medications [No Reported Medications] 02/28/20 [History] Hx Tetanus, Diphtheria Vaccination/Date Given: Yes Hx Influenza Vaccination/Date Given: No Travel Risk - International Travel Have you traveled outside of the country in past 3 weeks: No - Emerging Infectious Disease Are you exhibiting symptoms associated with any current EIDs: Yes Symptoms: Cough: New Onset, Fever, Headaches/Body Aches/, Shortness of Breath - Review of Systems Constitutional: Fever Eyes: No Symptoms Ears, Nose, & Throat: Ear Pain (Bilateral but left side worse than right) Respiratory: Cough, Dyspnea Cardiac: No Symptoms, No Chest Pain Abdominal/Gastrointestinal: No Symptoms Genitourinary Symptoms: No Symptoms Musculoskeletal: Arthralgias, Myalgias Skin: No Symptoms Neurological: No Symptoms Psychological: No Symptoms Endocrine: No Symptoms Hematologic/Lymphatic: No Symptoms Immunological/Allergic: No Symptoms All Other Systems: Reviewed and Negative - Past Medical History Pertinent Past Medical History: Yes Neurological History: No Pertinent History ENT History: No Pertinent History Cardiac History: No Pertinent History Respiratory History: No Pertinent History Endocrine Medical History: Diabetes Type I Musculoskeletal History: No Pertinent History GI Medical History: No Pertinent History History: No Pertinent History, Other (Hx kidney stones) Psycho-Social History: No Pertinent History Male Reproductive Disorders: No Pertinent History - Past Surgical History Past Surgical History: Yes Other Surgical History: Wart removal - Social History Smoking Status: Never smoker Exposure to second hand smoke: Yes Drug Use: none - Nursing Vital Signs Nursing Vital Signs: Initial Vital Signs Pulse Rate 111 H 06/28/24 18:08 Respiratory Rate 20 06/28/24 18:08 Blood Pressure 231/135 06/28/24 18:08 O2 Sat by Pulse Oximetry 99 06/28/24 18:08 Pain Scale Pain Intensity 5 - Physical Exam General Appearance: no apparent distress, alert, anxiety Eye Exam: PERRL/EOMI, eyes nml inspection Ears, Nose, Throat Exam: hearing grossly normal, normal ENT inspection, normal pharynx Neck Exam: normal inspection, non-tender, supple, full range of motion Respiratory Exam: normal breath sounds, lungs clear, airway intact, No chest tenderness, No respiratory distress Cardiovascular/Chest Exam: tachycardia Abdominal/Gastrointestinal Exam: soft, normal bowel sounds, No tenderness Rectal Exam: not done Extremity Exam: non-tender Neurologic Exam: alert, oriented x 3, cooperative, 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 QTc is 460) Ordered Tests: Active Orders 24 hr Category Date Time Status EKG-ER Only STAT Care 06/28/24 18:14 Active IV Insertion STAT Care 06/28/24 18:14 Active CHEST 1 VIEW (PORTABLE) Stat Exams 06/28/24 18:15 Taken BLOOD CULTURE Stat Lab 06/28/24 18:14 Ordered CBC W DIFF Stat Lab 06/28/24 18:57 Completed CMP Stat Lab 06/28/24 18:57 Completed Lactic Acid Stat Lab 06/28/24 19:25 Completed MAGNESIUM Stat Lab 06/28/24 18:57 Completed NT PRO BNPII Stat Lab 06/28/24 18:57 Completed POCT GLUCOSE Stat Lab 06/28/24 18:13 Completed TROPONIN Q4H Lab 06/28/24 18:57 Completed TROPONIN Q4H Lab 06/28/24 22:15 Ordered TROPONIN Q4H Lab 06/29/24 02:15 Ordered UA W/RFX UR CULTURE Stat Lab 06/28/24 20:50 Ordered Medication Summary Generic Name Dose Route Start Last Admin Trade Name Natacha PRN Reason Stop Dose Admin Sodium Chloride 500 mls @ 50 mls/hr 06/28/24 20:30 06/28/24 20:31 Sodium Chloride 0.9% 500 Ml IV 07/28/24 20:29 50 mls/hr .Q10H NAN Administration Discontinued Medications Generic Name Dose Route Start Last Admin Trade Name Natacha PRN Reason Stop Dose Admin Magnesium Sulfate/Dextrose 100 mls @ 200 mls/hr 06/28/24 19:40 06/28/24 20:23 Magnesium 1 Gm / 100 Ml D5w IV 06/28/24 20:09 Infused STAT ONE Infusion Magnesium Sulfate/Dextrose Confirm 06/28/24 19:43 Magnesium 1 Gm / 100 Ml D5w Administered 06/28/24 19:44 Dose 100 mls @ ud IV .STK-MED ONE Labetalol HCl 10 mg 06/28/24 19:00 06/28/24 19:04 Labetalol Hcl 20 Mg/4 Ml Disp.Syringe IV 06/28/24 19:01 10 mg STAT ONE Administration Labetalol HCl Confirm 06/28/24 19:03 Labetalol Hcl 20 Mg/4 Ml Disp.Syringe Administered 06/28/24 19:04 Dose 20 mg IV .STK-MED ONE Labetalol HCl 10 mg 06/28/24 20:12 06/28/24 20:18 Labetalol Hcl 20 Mg/4 Ml Disp.Syringe IV 06/28/24 20:13 10 mg STAT ONE Administration Labetalol HCl Confirm 06/28/24 20:17 Labetalol Hcl 20 Mg/4 Ml Disp.Syringe Administered 06/28/24 20:18 Dose 20 mg IV .STK-MED ONE Lab/Rad Data: Laboratory Result Diagrams 06/28/24 18:57 06/28/24 18:57 Laboratory Results 06/28/24 06/28/24 06/28/24 Range/Units 19:25 18:57 18:57 WBC (4.23-9.07) x10^3/uL RBC (4.63-6.08) x10^6/uL Hgb (13.7-17.5) g/dL Hct (40.1-51.0) % MCV (79.0-92.2) fL MCH (25.7-32.2) pg MCHC (32.3-36.5) g/dL RDW (11.6-14.4) % Plt Count (163-337) x10^3/uL MPV (9.4-12.4) fL Gran % (34.0-67.9) % Immature Gran % (Auto) (0.001-0.429) % Nucleat RBC Rel Count (0.00-0.2) % Eos # (Auto) (0.04-0.54) x10^3/uL Immature Gran # (Auto) (0.001-0.031) x10^3u/L Absolute Lymphs (auto) (1.32-3.57) x10^3/uL Absolute Monos (auto) (0.30-0.82) x10^3/uL Absolute Nucleated RBC (0.00-0.012) x10^3u/L Lymphocytes % (21.8-53.1) % Monocytes % (5.3-12.2) % Eosinophils % (0.8-7.0) % Basophils % (0.2-1.2) % Absolute Granulocytes (1.78-5.38) x10^3/uL Basophils # (0.01-0.08) x10^3/uL Sodium (135-145) mmol/L Potassium (3.5-5.1) mmol/L Chloride (98-107) mmol/L Carbon Dioxide (22-30) mmol/L Anion Gap (5-15) MEQ/L BUN (9-20) mg/dL Creatinine (0.66-1.25) mg/dL Estimated GFR ML/MIN Glucose (74-106) mg/dL POC Glucometer (74 to 106) mg/dL Lactic Acid 1.5 (0.4-2.0) Calcium (8.4-10.2) mg/dL Magnesium (1.6-2.3) mg/dL Total Bilirubin (0.2-1.3) mg/dL AST (17-59) U/L ALT (0-50) U/L Alkaline Phosphatase (38-126) U/L Troponin I 0.025 (0.000-0.033) ng/mL NT-Pro-B Natriuret Pep (<300) pg/mL Serum Total Protein (6.3-8.2) g/dL Albumin (3.5-5.0) g/dL Influenza Type A Ag POSITIVE A (NEGATIVE) Influenza Type B Ag NEGATIVE (NEGATIVE) RSV (PCR) NEGATIVE (NEGATIVE) SARS-CoV-2 (PCR) NEGATIVE (NEGATIVE) 06/28/24 06/28/24 06/28/24 Range/Units 18:57 18:57 18:13 WBC 7.3 (4.23-9.07) x10^3/uL RBC 3.94 L (4.63-6.08) x10^6/uL Hgb 11.4 L (13.7-17.5) g/dL Hct 33.2 L (40.1-51.0) % MCV 84.3 (79.0-92.2) fL MCH 28.9 (25.7-32.2) pg MCHC 34.3 (32.3-36.5) g/dL RDW 13.0 (11.6-14.4) % Plt Count 172 (163-337) x10^3/uL MPV 7.9 L (9.4-12.4) fL Gran % 83.9 H (34.0-67.9) % Immature Gran % (Auto) 0.4 (0.001-0.429) % Nucleat RBC Rel Count 0.0 (0.00-0.2) % Eos # (Auto) 0.08 (0.04-0.54) x10^3/uL Immature Gran # (Auto) 0.03 (0.001-0.031) x10^3u/L Absolute Lymphs (auto) 0.41 L (1.32-3.57) x10^3/uL Absolute Monos (auto) 0.60 (0.30-0.82) x10^3/uL Absolute Nucleated RBC 0.00 (0.00-0.012) x10^3u/L Lymphocytes % 5.6 L (21.8-53.1) % Monocytes % 8.2 (5.3-12.2) % Eosinophils % 1.1 (0.8-7.0) % Basophils % 0.8 (0.2-1.2) % Absolute Granulocytes 6.15 H (1.78-5.38) x10^3/uL Basophils # 0.06 (0.01-0.08) x10^3/uL Sodium 135 (135-145) mmol/L Potassium 4.2 (3.5-5.1) mmol/L Chloride 106 (98-107) mmol/L Carbon Dioxide 19 L (22-30) mmol/L Anion Gap 14.5 (5-15) MEQ/L BUN 48 H (9-20) mg/dL Creatinine 5.33 H (0.66-1.25) mg/dL Estimated GFR 12.2 ML/MIN Glucose 179 H (74-106) mg/dL POC Glucometer 113 H (74 to 106) mg/dL Lactic Acid (0.4-2.0) Calcium 6.8 L (8.4-10.2) mg/dL Magnesium 1.2 L (1.6-2.3) mg/dL Total Bilirubin 0.50 (0.2-1.3) mg/dL AST 36 (17-59) U/L ALT 19 (0-50) U/L Alkaline Phosphatase 83 (38-126) U/L Troponin I (0.000-0.033) ng/mL NT-Pro-B Natriuret Pep 3610 (<300) pg/mL Serum Total Protein 6.1 L (6.3-8.2) g/dL Albumin 3.4 L (3.5-5.0) g/dL Influenza Type A Ag (NEGATIVE) Influenza Type B Ag (NEGATIVE) RSV (PCR) (NEGATIVE) SARS-CoV-2 (PCR) (NEGATIVE) - Progress Progress: improved Air Movement: good Progress Note: 06/28/24 19:21 My medical decision making and the assignment of moderate complexity to this patient's medical issue today is based on review of the patient's past medical history, review of the patient's medication list, reviewed patient drug allergy list, history present illness and physical findings on examination. The workup in this patient includes placement of a intravenous line, CBC, CMP, lactic acid level, magnesium level, BNP, troponin level, viral swabs, monotest, urinalysis. I will also provide him with a dose of labetalol intravenously. Differential diagnosis includes but is not limited to dehydration, urinary tract infection, viral illness, noncompliance with his medication, myocardial infarction, congestive heart failure, pneumonia 06/28/24 20:14 I interpreted the patient's laboratory data results. Based on the laboratory data results, the patient has CHF, renal failure, influenza A. I interpreted the patient's preliminary chest x-ray report. I do not see any acute cardiopulmonary abnormalities. 06/28/24 20:18 In my view the patient also has a at least hypertensive urgency. 1 could argue that the patient has hypertensive emergency with a significant change in his renal function since the 2019. Patient's GFR was running 48-49 in 2019 and now his GFR is 12. This patient needs to be aware there is specialist that can manage his renal issues and hypertension issues as well as fluid balance. 06/28/24 20:[address] Wang, emergency department physician at [facility] in [facility]. I reviewed the patient history, presenting complaint, physical findings and the workup results with him. I told him that this patient, in my opinion, needs to be at a facility where there is nephrology and cardiology as the patient has at least hypertensive urgency and possibly emergency, CHF and acute on chronic renal failure. He was also told that the patient has influenza A. Dr. Wang refuses transfer because they do not have urology. This patient does not emergently need urologic services. Dr. Wang was focused on this and the fact that the patient may require urologic evaluation and they do not have urology services at this time is his rationale for declining the transfer. 06/28/24 20:[address] Bergman. I reviewed the patient history, presenting complaint, physical findings on examination and workup results. We will admit this patient into the hospital on telemetry. Blood Culture(s) Obtained: Yes Antibiotics given: No Discussed with : Honey Counseled pt/family regarding: lab results, diagnosis, rad results Medical Desision Making - Diagnostic Testing Diagnostic test were ordered, analyzed, and reviewed by me: Yes Radiological Interpretation: Interpreted by me, Teleradiologist Report - Risk of complications The pt has a high risk of morbidity or mortality based on: Decision regarding hospitilization or escalation of hosp level of care - Departure Departure Disposition: In-patient Admission Clinical Impression: Elevated brain natriuretic peptide (BNP) level, Shortness of breath, Renal failure (ARF), acute on chronic, Influenza A H1N1 infection, Hypertensive urgency Condition: Fair Critical Care Time: Yes Critical Care Time(excluding separately billable procedures): Critical 30-74 mins (45) Referrals: DOCTOR,NO FAMILY [NON-STAFF PHY W/O PRIVILEGES] - Follow up/PCP as directed
[2024-06-28 18:17] VITALS: TEMP 97.7
[2024-06-28 18:53] LABS: Absolute Neutrophil Ct (ANC) 6.15 x10^3/uL (1.78-5.38); BASOPHIL % 0.8 % (0.2-1.2); Basophil (Absolute #) 0.06 x10^3/uL (0.01-0.08); Eosinophil % 1.1 % (0.8-7.0); Eosinophil (Absolute #) 0.08 x10^3/uL (0.04-0.54); Hematocrit 33.2 % (40.1-51.0); Hemoglobin 11.4 g/dL (13.7-17.5); IMMATURE GRAN # 0.03 x10^3u/L (0.001-0.031); IMMATURE GRAN % 0.4 % (0.001-0.429); Lymphocyte (Absolute #) 0.41 x10^3/uL (1.32-3.57); Lymphocytes % 5.6 % (21.8-53.1); Mean Cell Volume 84.3 fL (79.0-92.2); Mean Corpuscular Hemoglobin 28.9 pg (25.7-32.2); Mean Corpuscular Hgb Concent. 34.3 g/dL (32.3-36.5); Mean Platelet Volume 7.9 fL (9.4-12.4); Monocytes % 8.2 % (5.3-12.2); Neutrophil % 83.9 % (34.0-67.9); Platelet Count 172 x10^3/uL (163-337); Red Blood Count 3.94 x10^6/uL (4.63-6.08); White Blood Count 7.3 x10^3/uL (4.23-9.07)
[2024-06-28] MEDS ORDERED: TRANDATE 20 MG/4 ML SYRINGE IV ONE ×2 (19:03→20:17)
[2024-06-28] MEDS: TRANDATE 20 MG/4 ML SYRINGE IV ONE ×2 (19:04→20:18)
[2024-06-28 19:16] LABS: ALBUMIN 3.4 g/dL (3.5-5.0); ANION GAP 14.5 MEQ/L (5-15); BILIRUBIN,TOTAL 0.5 mg/dL (0.2-1.3); Calcium 6.8 mg/dL (8.4-10.2); Creatinine 1 5.33 mg/dL (0.66-1.25); EST GLOMERULAR FILTRATION RATE 12.2 ML/MIN; MAGNESIUM 1.2 mg/dL (1.6-2.3); Potassium 4.2 mmol/L (3.5-5.1); Total Protein 6.1 g/dL (6.3-8.2)
[2024-06-28 19:41] LABS: INFLUENZA B NEGATIVE (NEGATIVE); RESPIRATORY SYNCTIAL VIRUS NEGATIVE (NEGATIVE); SARS-CoV-2 Xpert Express NEGATIVE (NEGATIVE)
[2024-06-28] MEDS ORDERED: Magnesium 1 Gm / 100 Ml D5W*** 100 ML IV ONE (19:43)
[2024-06-28] MEDS: Magnesium 1 Gm / 100 Ml D5W*** 100 ML IV ONE (19:44)
[2024-06-28 19:50] LABS: INFLUENZA A POSITIVE (NEGATIVE)
[2024-06-28] MEDS ORDERED: Sodium Chloride 0.9% 500 ML 500 ML IV ONE (20:30)
[2024-06-28] MEDS: Sodium Chloride 0.9% 500 ML 500 ML IV SCH (20:31)
[2024-06-28 22:42] VITALS: BP 186/104; PULSE 95; RESP 19; O2SAT 99
--- NOTE | 2024-06-29 08:47 | XRAY ---
Indication: Short of breath. Comparison: February 28, 2020 Portable chest again inflated and clear. Heart not enlarged with slightly tortuous descending aorta. Bony thorax intact. No new/acute findings.
== END 2024-06-28 22:46 | disposition left against medical advice (07) ==
LOC: ED 18:05
DX: J10.1 Influenza due to other identified influenza virus with other respiratory manifestations (principal); N17.9 Acute kidney failure, unspecified; I16.0 Hypertensive urgency; I12.9 Hypertensive chronic kidney disease with stage 1 through stage 4 chronic kidney disease, or unspecified chronic kidney disease; N18.9 Chronic kidney disease, unspecified; R79.89 Other specified abnormal findings of blood chemistry; R06.02 Shortness of breath; E11.9 Type 2 diabetes mellitus without complications
CPT/HCPCS: 0241U; 36415; 71045; 80053; 82947; 83605; 83735; 83880; 84484; 85025; 87040; 93005; 96365; 96375; 96376; 99291; 96374; 99284; J3475